=== PATIENT | female | born 1990 | race Caucasian/White ===

== ENCOUNTER → 2018-05-02 09:03 | Outpatient (CLI) | payer OTHER, SELFPAY ==
[2018-05-05 11:53] LABS: HPV Reflexed? NOT INDICATED
== END ==
PROVIDERS: Family Provider Family Medicine; PCP Family Medicine; Visit Provider Nurse Practitioner Women's Health
DX: Z12.4 Encounter for screening for malignant neoplasm of cervix (principal)
CPT/HCPCS: 88175; G0145

== ENCOUNTER → 2019-10-11 13:23 | Outpatient (CLI) | payer OTHER, SELFPAY ==
[2019-10-03 13:23] VITALS: BMI 48.1
--- NOTE | 2019-10-11 13:24 | US_ITS ---
STUDY: ULTRASOUND OF THE FEMALE PELVIS - COMPLETE REASON FOR EXAM: Female, 29 years old. IRREGULAR MENSES LMP: Unknown. TECHNIQUE: Transabdominal and Transvaginal TECHNICAL QUALITY: Adequate. COMPARISON: None. FINDINGS: The uterus is anteverted and is in a midline position. The uterus measures 8.4 x 4.2 x 4.0 cm. Normal uterine cervix. The endometrium measures 5 mm in thickness, and is hyperechoic. There is no demonstrated endometrial mass. There is no demonstrated myometrial mass. I.U.D. - The patient does have an I.U.D. IUD noted in satisfactory position The right ovary is visualized. The right ovary measures 2.8 x 1.5 x 1.5 cm. There is no right ovarian cyst or ovarian mass. There is no visualized right adnexal mass or complex lesion. There is normal arterial and normal venous vascularity. The left ovary is visualized. The left ovary measures 4.1 x 4.7 x 4.0 cm. There is a 3.8 x 4.5 x 3.4 cm simple cyst. There is normal arterial and normal venous vascularity. There is no fluid in the cul-de-sac. The bladder is sonographically normal US/Transvaginal Non- IMPRESSION: Simple left ovarian cyst, otherwise unremarkable study, no free fluid IUD noted in satisfactory position Electronically Signed: Sam Tyson MD at 10:22 EST , Service support ,
--- NOTE | 2019-10-11 13:24 | US_ITS ---
STUDY: ULTRASOUND OF THE FEMALE PELVIS - COMPLETE REASON FOR EXAM: Female, 29 years old. IRREGULAR MENSES LMP: Unknown. TECHNIQUE: Transabdominal and Transvaginal TECHNICAL QUALITY: Adequate. COMPARISON: None. FINDINGS: The uterus is anteverted and is in a midline position. The uterus measures 8.4 x 4.2 x 4.0 cm. Normal uterine cervix. The endometrium measures 5 mm in thickness, and is hyperechoic. There is no demonstrated endometrial mass. There is no demonstrated myometrial mass. I.U.D. - The patient does have an I.U.D. IUD noted in satisfactory position The right ovary is visualized. The right ovary measures 2.8 x 1.5 x 1.5 cm. There is no right ovarian cyst or ovarian mass. There is no visualized right adnexal mass or complex lesion. There is normal arterial and normal venous vascularity. The left ovary is visualized. The left ovary measures 4.1 x 4.7 x 4.0 cm. There is a 3.8 x 4.5 x 3.4 cm simple cyst. There is normal arterial and normal venous vascularity. There is no fluid in the cul-de-sac. The bladder is sonographically normal US/Pelvic (Non ) IMPRESSION: Simple left ovarian cyst, otherwise unremarkable study, no free fluid IUD noted in satisfactory position Electronically Signed: Sam Tyson MD at 10:22 EST , Service support ,
== END ==
PROVIDERS: PCP Family Medicine; Referring Provider Nurse Practitioner Women's Health; Visit Provider Nurse Practitioner Women's Health
DX: N92.6 Irregular menstruation, unspecified (principal)
CPT/HCPCS: 76830; 76856

== ENCOUNTER 2020-09-04 00:30 | Emergency (ER) | payer OTHER, SELFPAY ==
[2019-10-18 14:06] VITALS: BMI 47.9
[2020-09-04 00:31] VITALS: BP 148/111; PULSE 95; RESP 18; TEMP 37.4; O2SAT 100; BMI 49.7
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
[2020-09-04] MEDS: Orphenadrine 100 MG Tablet PO (01:25)
[2020-09-04] MEDS: Naproxen 500 MG Tablet PO (01:25)
[2020-09-04 01:28] VITALS: BP 122/66; PULSE 78; RESP 16; O2SAT 100
== END 2020-09-04 01:42 | disposition home or self-care (01) ==
PROVIDERS: Emergency Provider Student in an Organized Health Care Education/Training Program; PCP Family Medicine
DX: S06.0X0A Concussion without loss of consciousness, initial encounter (principal); S16.1XXA Strain of muscle, fascia and tendon at neck level, initial encounter; V89.2XXA Person injured in unspecified motor-vehicle accident, traffic, initial encounter; Y93.9 Activity, unspecified; Y92.9 Unspecified place or not applicable; F41.8 Other specified anxiety disorders; L30.9 Dermatitis, unspecified; Z79.899 Other long term (current) drug therapy
CPT/HCPCS: 70450; 71046; 72125; 99283

== ENCOUNTER → 2020-09-11 | Outpatient (CLI) | payer OTHER, SELFPAY ==
[2020-09-04 00:31] VITALS: BMI 49.7
== END | disposition home or self-care (01) ==
LOC: LABSPEC 14:58
PROVIDERS: PCP Family Medicine; Referring Provider Family Medicine; Visit Provider Nurse Practitioner Family
DX: U07.1 COVID-19 (principal); R43.2 Parageusia
CPT/HCPCS: 87633; 87635; U0005; U0003

== ENCOUNTER → 2020-10-06 | Outpatient (CLI) | payer OTHER, SELFPAY ==
[2020-10-06 12:56] VITALS: BMI 47.9
[2020-10-06 20:35] LABS: Chlamydia Trachomatis by PCR Negative (Negative); Neisserai gonorrhoeae by PCR Negative (Negative); Probe Check PASS; Sample Adequacy Control PASS; Specimen Processing Control PASS
== END | disposition home or self-care (01) ==
LOC: LABSPEC 16:01
PROVIDERS: PCP Family Medicine; Referring Provider Nurse Practitioner Women's Health; Visit Provider Nurse Practitioner Women's Health
DX: Z11.3 Encounter for screening for infections with a predominantly sexual mode of transmission (principal)
CPT/HCPCS: 87491; 87591

== ENCOUNTER → 2021-05-04 14:04 | Outpatient (CLI) | payer OTHER, SELFPAY ==
[2021-05-04 14:57] LABS: hCG Titer Quant., Serum 6668 mIU/mL (1-3)
== END ==
PROVIDERS: PCP Family Medicine; Referring Provider Obstetrics & Gynecology; Visit Provider Obstetrics & Gynecology
DX: O20.0 Threatened abortion (principal); Z3A.00 Weeks of gestation of pregnancy not specified
CPT/HCPCS: 36415; 84702; 86850; 86900; 86901

== ENCOUNTER → 2021-05-06 14:06 | Outpatient (CLI) | payer OTHER, SELFPAY ==
[2021-05-06 15:39] LABS: hCG Titer Quant., Serum 9997 mIU/mL (1-3)
== END ==
PROVIDERS: PCP Family Medicine; Referring Provider Obstetrics & Gynecology; Visit Provider Obstetrics & Gynecology
DX: O20.9 Hemorrhage in early pregnancy, unspecified (principal); Z3A.00 Weeks of gestation of pregnancy not specified
CPT/HCPCS: 36415; 84702

== ENCOUNTER 2021-05-29 02:53 | Emergency (ER) | payer OTHER, SELFPAY ==
[2021-05-29 02:56] VITALS: BP 133/71; PULSE 85; RESP 26; TEMP 36.9; O2SAT 99; BMI 50.5
--- NOTE | 2021-05-29 03:08 | US_ITS ---
EXAM: US , Transvaginal CLINICAL INDICATION: 31 years old, Female; bleeding TECHNIQUE: Real-time transvaginal obstetrical ultrasound of the maternal pelvis and a first trimester with image documentation. Transvaginal imaging was used for better evaluation of the fetus and adnexa. This report was created using [employer] report generation technology. COMPARISON: None. FINDINGS: Gestation: Single viable intrauterine with uxugq-ra-ghrz length (CRL) of 2.55 cm. Estimated gestational age is 9 weeks and 2 days. Cardiac activity is seen with a rate of 164 beats per minute. Placenta/amniotic fluid: Cannot be adequately evaluated due to the early gestational age. Uterus/cervix: 3.1 cm intramural fibroid in the posterior uterus. The cervix is closed. Ovaries: The right ovary is not seen. Free fluid: No free fluid. US/Transvaginal w/Preg US IMPRESSION: 1. Single viable intrauterine as described. 2. 3.1 cm intramural fibroid in the posterior uterus. ASSESSMENT: ABNORMAL report - There are abnormal findings in this report which may be related or unrelated to the reason for the exam. Electronically Signed: Sage Saez MD at 5:00 EDT Tel , Service support ,
--- NOTE | 2021-05-29 03:11 | EDS_ITS ---
HPI HPI - Female History of Present Illness Chief Complaint: Vag Bld, Preg Informant: patient Pain Pain: Positive for Pelvic Pain Onset: Today Bleeding Issue: Positive for Vaginal bleeding; Negative for Passing clots Onset: Today Current Severity: Similar to period Associated Symptoms P: 0 Ab: 0 Narrative Narrative: Patient presents due to concerns for miscarriage. Patient has approximately 8 to 9 weeks . This morning she got to the restroom and noted significant bright red bleeding. She has had some cramping. Patient was seen in her GYNs office on May 04 for some spotting. She did get RhoGam at that time. Patient states she is had rare spotting since then. Patient has not yet had any imaging to verify intrauterine . [facility] Medical History COVID-19 vaccine administered Depression with anxiety Eczema Mood swings Seasonal allergies Sleep apnea URI, acute Home Medications citalopram 40 mg tablet 40 mg PO DAILY #90 tab 10/20/20 [Rx Last Taken Unknown] albuterol sulfate 90 mcg/actuation aerosol inhaler 2 puff INHALATION Q4H PRN #18 g 03/11/21 [Rx Last Taken Unknown] fluticasone propionate 232 mcg/actuation breath activated pwdr inhal,sensor 1 inh INHALATION BID 05/13/21 [History Last Taken Unknown] multivitamin no.47-iron fum 27 mg-folate no.1 1 mg-dha 300 mg capsule 1 cap PO DAILY 05/13/21 [History Last Taken Unknown] Allergy/AdvReac Type Severity Reaction Status Date / Time Enviormental Allergy Mild Unknown Uncoded 05/29/21 02:54 Family History Father Diabetes Surgical History S/P tonsillectomy S/P wisdom tooth extraction [place] teeth removed Social History household members: family current occupation: [employer] Smoking Status: Never smoker alcohol intake: never substance use type: does not use caffeine: Yes what type of physical activity do you participate in: aerobics and weight training frequency: 3-4 times per week seatbelt use: always do you feel safe at home: Yes ROS ROS ED Constitutional Constitutional ED: Denies chills or fever(s) Eyes Eyes: Denies change in vision ENT ENT ED: Denies sore throat Cardiovascular Cardiovascular: Denies chest pain Respiratory/Chest Respiratory/Chest: Denies cough or dyspnea Gastrointestinal Gastrointestinal: Reports abdominal pain; Denies diarrhea, nausea or vomiting Genitourinary Genitourinary ED: Reports other Details: Vaginal bleeding ; Denies dysuria Musculoskeletal Musculoskeletal: Denies back pain Integumentary Denies rash Neurologic Neurologic: Denies headache(s) or weakness Psychiatric Psychiatric: Reports anxiety; Denies depression Allergic/Immunologic Allergic/Immunologic ED: Denies urticaria EXAM Physical Exam Const Vital Signs: 05/29/21 02:56 Temperature 98.4 F Temperature Source Oral Pulse Rate 85 Respiratory Rate 26 H Blood Pressure 133/71 H Blood Pressure Mean 91 Pulse Ox 99 Oxygen Delivery Method Room Air Positive well nourished and well developed General Appearance ED: well developed HEENT Reports normocephalic and head/scalp atraumatic Eyes PERRL and EOMs intact bilaterally Neck supple Chest Wall inspection of chest normal and palpation of chest normal Resp normal respiratory effort and clear to auscultation bilaterally Cardio regular rate and regular rhythm GI normal to inspection, nondistended, normoactive bowel sounds Palpation: soft Extremity normal to inspection Neuro oriented x3 and no sensory deficits noted Sensorium / Orientation: alert Motor Exam: strength 5/5 throughout Psych Mood & Affect: tearful Skin no rashes or lesions noted MDM MDM MDM Narrative Medical decision making narrative: See and quant obtained. Because patient had not yet had ultrasound performed to verify intrauterine this was ordered. Patient was given Ativan to help with anxiety. Lab Data Attestation: I reviewed the patient's lab results. Labs: Laboratory Results - last 24 hr 05/29/21 05/29/21 03:17 03:17 WBC 8.2 RBC 4.05 L Hgb 11.5 L Hct 35.8 L MCV 88.4 MCH 28.4 MCHC 32.1 RDW Std Deviation 42.9 RDW Coeff of Rivas 13.2 Plt Count 175 MPV 10.1 Immature Gran % (Auto) 0.700 Neut % (Auto) 66.0 Lymph % (Auto) 25.5 [place] % (Auto) 5.6 Eos % (Auto) 1.8 Baso % (Auto) 0.4 Absolute Neuts (auto) 5.4 Absolute Lymphs (auto) 2.09 Nucleated RBC % 0 HCG, Quant [id number] H Radiography Diagnostic Testing: Radiology Impression Obstetrics Ultrasound 05/29/21 03:08 IMPRESSION: 1. Single viable intrauterine as described. 2. 3.1 cm intramural fibroid in the posterior uterus. ASSESSMENT: ABNORMAL report - There are abnormal findings in this report which may be related or unrelated to the reason for the exam. Electronically Signed: Sage Saez MD at 5:00 EDT Tel , Service support , Treatment and Re-Evaluation Comments:: On repeat evaluation patient resting comfortably. She states that her bleeding has significantly diminished and now only is passing blood-tinged mucus. Test results discussed with patient and mother at bedside. At this time she will monitor her symptoms. I did discuss case with Dr. Huerta, on-call for her [employer] office. Patient has a follow-up with scheduled Tuesday and is to keep this appointment. If her bleeding worsens she is to call the office. Discharge Plan Triage Chief Complaint: Vag Bld, Preg ED Provider: Isamar Haney Dx/Rx/DC Orders Clinical Impression: Miscarriage, threatened, early Instructions: ED Possible Miscarriage ... Prescriptions: No Action albuterol sulfate [Ventolin HFA] 90 mcg/actuation HFA aerosol inhaler 2 puff inhalation Q4H PRN (Reason: shortness of breath or wheezing) Qty: 18 RF: 6 ArmonAir Digihaler 232 mcg/actuation aero powdr breath act w/sensor 1 inh inhalation BID RF: 0 PNV-DHA 27 mg iron-1 mg -300 mg capsule 1 cap PO DAILY RF: 0 citalopram 40 mg tablet 40 mg PO DAILY Qty: 90 RF: 3 Primary Care Provider: Александр Coleman Referrals: Kaylee Huerta MD [STAFF PHYSICIAN] - Keep Tami appointment Александр Coleman MD [Primary Care Provider] - Disposition Disposition: Home, Self Care
[2021-05-29 03:26] LABS: Absolute Lymphocyte Count 2.09 X10^3/uL (0.83-4.51); Absolute Neutrophil Count 5.4 X10^3/uL (2.0-7.7); Basophil# 0.03 X10^3/uL; Basophil% 0.4 % (0-1); Eosinophil# 0.15 X10^3/uL; Eosinophils% 1.8 % (0-5); Hematocrit 35.8 % (37-47); Hemoglobin 11.5 g/dL (12.0-15.0); Lymphocyte # 2.09 X10^3/ul (0.83-4.51); Lymphocyte % 25.5 % (19-41); Mean Corp Hgb Conc 32.1 g/dL (32-36); Mean Corpuscular Hgb 28.4 pg (27.0-32.0); Mean Corpuscular Volume 88.4 fL (81-99); Mean Platelet Vol. 10.1 fl (6.2-12.0); Monocyte# 0.46 X10^3/uL; Monocyte% 5.6 % (0-10); NRBC Flagged by Analyzer 0 % (0-5); Neutrophil # 5.42 X10^3/uL (2.7-7.7); Platelet Count 175 K/mm3 (150-450); RBC Distribution Width CV 13.2 % (11.6-14.6); RBC Distribution Width SD 42.9 fl (35.1-43.9); Red Blood Count 4.05 M/mm3 (4.2-5.4); White Blood Count 8.2 K/mm3 (4.4-11.0)
[2021-05-29] MEDS: LORazepam 2 MG/ML Syringe 1 MG IV (04:13)
[2021-05-29 04:42] LABS: hCG Titer Quant., Serum 52300 mIU/mL (1-3)
[2021-05-29 05:27] VITALS: PULSE 76; RESP 18; O2SAT 97
== END 2021-05-29 05:27 | disposition home or self-care (01) ==
PROVIDERS: Emergency Provider Emergency Medicine; PCP Family Medicine
DX: O20.0 Threatened abortion (principal); Z3A.09 9 weeks gestation of pregnancy
CPT/HCPCS: 76817; 84702; 85025; 96374; 99283; A4216

== ENCOUNTER → 2021-06-01 | Outpatient (CLI) | payer OTHER, SELFPAY ==
[2021-06-01 12:40] LABS: Amphetamine Urine VISTA NEGATIVE (<1000 ng/mL); Barbiturate Urine VISTA NEGATIVE (< 200 ng/mL); Benzodiazepine Urine VISTA NEGATIVE (< 200 ng/mL); Cocaine Urine VISTA NEGATIVE (< 300 ng/mL); Ecstacy Urine VISTA NEGATIVE (< 500 ng/mL); Methadone Urine VISTA NEGATIVE (< 300 ng/mL); PCP Urine VISTA NEGATIVE (< 25 ng/mL); THC Urine VISTA NEGATIVE (< 50 ng/mL); Vista UDS pH Range 5
[2021-06-03 04:07] LABS: Chlamydia By Nucleic Acid AMP Negative (Negative)
[2021-06-03 09:30] LABS: Gonococcus By Nucleic Acid AMP Negative (Negative)
[2021-06-04 18:04] LABS: HPV APTIMA, High Risk Positive (Negative)
== END | disposition home or self-care (01) ==
LOC: LABSPEC 11:49
PROVIDERS: PCP Family Medicine; Referring Provider Obstetrics & Gynecology; Visit Provider Obstetrics & Gynecology
DX: Z34.90 Encounter for supervision of normal pregnancy, unspecified, unspecified trimester (principal); Z12.4 Encounter for screening for malignant neoplasm of cervix
CPT/HCPCS: 80307; 87086; 87088; 87491; 87591; 87624; 88175; G0145

== ENCOUNTER → 2021-06-12 09:48 | Outpatient (CLI) | payer OTHER, SELFPAY ==
[2021-06-12 11:07] LABS: Absolute Lymphocyte Count 1.91 X10^3/uL (0.83-4.51); Absolute Neutrophil Count 5.5 X10^3/uL (2.0-7.7); Basophil# 0.02 X10^3/uL; Basophil% 0.2 % (0-1); Eosinophil# 0.15 X10^3/uL; Eosinophils% 1.9 % (0-5); Hemoglobin 11.6 g/dL (12.0-15.0); Lymphocyte # 1.91 X10^3/ul (0.83-4.51); Lymphocyte % 23.8 % (19-41); Mean Corp Hgb Conc 33.1 g/dL (32-36); Mean Corpuscular Hgb 28.9 pg (27.0-32.0); Mean Corpuscular Volume 87.3 fL (81-99); Mean Platelet Vol. 9.9 fl (6.2-12.0); Monocyte# 0.37 X10^3/uL; Monocyte% 4.6 % (0-10); NRBC Flagged by Analyzer 0 % (0-5); Neutrophil # 5.54 X10^3/uL (2.7-7.7); Platelet Count 156 K/mm3 (150-450); RBC Distribution Width CV 13.4 % (11.6-14.6); RBC Distribution Width SD 42.7 fl (35.1-43.9); Red Blood Count 4.01 M/mm3 (4.2-5.4)
[2021-06-12 11:21] LABS: Glucose Challenge Gest 1H 50g 178 mg/dL (70-140)
[2021-06-12 12:04] LABS: HIV - WCH Non-Reactive (Nonreactive); Hepatitis B Surface Antigen Non-Reactive (Nonreactive); Hepatitis C Antibody Non-Reactive (Nonreactive); Rubella IgG Reactive (Nonreactive); Syphilis Antibodies Non-reactive
== END ==
LOC: LAB 09:49 → PAVLAB 11:40
PROVIDERS: PCP Family Medicine; Referring Provider Obstetrics & Gynecology; Visit Provider Obstetrics & Gynecology
DX: O36.0190 Maternal care for anti-D [Rh] antibodies, unspecified trimester, not applicable or unspecified (principal); Z3A.00 Weeks of gestation of pregnancy not specified
CPT/HCPCS: 36415; 82950; 85025; 86703; 86762; 86780; 86803; 86850; 86870; 86900; 86901; 87340

== ENCOUNTER → 2021-07-01 11:50 | Outpatient (CLI) | payer OTHER, SELFPAY ==
[2021-07-01 12:23] LABS: Hemoglobin A1c 5.7 % (3.8-5.6)
[2021-07-02 10:14] LABS: Kleihauer-Betke Negative
== END ==
PROVIDERS: PCP Family Medicine; Referring Provider Obstetrics & Gynecology; Visit Provider Obstetrics & Gynecology
DX: E66.01 Morbid (severe) obesity due to excess calories (principal); Z68.42 Body mass index [BMI] 45.0-49.9, adult
CPT/HCPCS: 36415; 83036; 84443; 85460

== ENCOUNTER 2021-07-14 13:30 | Outpatient (RCR) | payer OTHER, SELFPAY | END 2021-08-04 23:59 | LOC: DC 13:30 | PROVIDERS: PCP Family Medicine; Visit Provider Obstetrics & Gynecology | DX: O24.419 Gestational diabetes mellitus in pregnancy, unspecified control (principal); Z3A.00 Weeks of gestation of pregnancy not specified | CPT/HCPCS: 97802 ==

== ENCOUNTER 2021-10-15 13:46 | Outpatient (CLI) | payer OTHER, SELFPAY ==
[2021-10-15 14:11] LABS: Absolute Lymphocyte Count 1.96 X10^3/uL (0.83-4.51); Absolute Neutrophil Count 5.7 X10^3/uL (2.0-7.7); Basophil# 0.02 X10^3/uL; Basophil% 0.2 % (0-1); Eosinophil# 0.16 X10^3/uL; Eosinophils% 1.9 % (0-5); Hematocrit 32.7 % (37-47); Hemoglobin 10.7 g/dL (12.0-15.0); Lymphocyte # 1.96 X10^3/ul (0.83-4.51); Mean Corp Hgb Conc 32.7 g/dL (32-36); Mean Corpuscular Hgb 29.3 pg (27.0-32.0); Mean Corpuscular Volume 89.6 fL (81-99); Mean Platelet Vol. 9.7 fl (6.2-12.0); Monocyte# 0.55 X10^3/uL; Monocyte% 6.5 % (0-10); NRBC Flagged by Analyzer 0 % (0-5); Neutrophil # 5.68 X10^3/uL (2.7-7.7); Neutrophil % 66.8 % (47-70); Platelet Count 125 K/mm3 (150-450); RBC Distribution Width CV 13.7 % (11.6-14.6); RBC Distribution Width SD 44.9 fl (35.1-43.9); Red Blood Count 3.65 M/mm3 (4.2-5.4); White Blood Count 8.5 K/mm3 (4.4-11.0)
== END 2021-10-15 23:59 | disposition home or self-care (01) ==
LOC: PAVLAB 13:47
PROVIDERS: PCP Family Medicine; Referring Provider Obstetrics & Gynecology; Visit Provider Obstetrics & Gynecology
DX: O26.892 Other specified pregnancy related conditions, second trimester (principal); Z67.91 Unspecified blood type, Rh negative
CPT/HCPCS: 36415; 85025; 86850; 86900; 86901

== ENCOUNTER 2021-11-03 12:17 | Outpatient (CLI) | payer OTHER, SELFPAY ==
--- NOTE | 2021-11-03 12:20 | US_ITS ---
STUDY: SECOND AND THIRD TRIMESTER OBSTETRICAL ULTRASOUND REASON FOR EXAM: Female, 31 years old growth LMP: 03/27/2021. TECHNIQUE: Transabdominal TECHNICAL QUALITY: Adequate. PRIOR ULTRASOUND: Comparison is made with prior study 05/29/2021. FINDINGS: There is a single intrauterine fetus. The fetus is in a cephalic presentation. There is demonstrated cardiac activity with a heart rate of 150 bpm. There is a normal amniotic fluid volume. The largest amniotic fluid pocket measures 5.2 cm. The amniotic fluid index (MARY) is 18.3 cm. The placenta is anterior in location and is not low lying. There are Grade 1 placental changes. The cervix measures 4.9 cm in length. The adnexal regions are not visualized. BIOMETRY: BPD: 8.52 cm: 34 weeks, 2 days HC: 31.16 cm: 34 weeks, 6 days AC: 30.9 cm: 34 weeks, 5 days FL: 6.14 cm: 31 weeks, 5 days CI: 80% FL/BPD: 72% FL/HC: FL/AC: 20% HC/AC: 1.01 age by current US: 33 weeks, 5 days. LUIS by current US: 12/17/2021. Estimated weight: 2327 grams, +/- 349 grams, 97 %. age by prior US: 31 weeks, 5 days. LUIS by prior US: 12/31/2021. Age by LMP: 31 weeks, 4 days. LUIS by LMP: 01/01/2022. US/OB Limited With Biometrics IMPRESSION: Single live intrauterine gestation with a mean gestational age of 31 weeks and 5 days. The measurements obtained today places the fetus in the 97th percentile. Electronically Signed: Vitaly Patricio MD at 12:27 EST ,
[2021-11-03 13:53] LABS: T4 Free Direct 0.82 ng/dL (0.76-1.46); Thyroid Stim Hormone (TSH) 1.58 uIU/mL (0.358-3.74)
== END 2021-11-03 23:59 | disposition home or self-care (01) ==
PROVIDERS: Internal Medicine Endocrinology, Diabetes & Metabolism; PCP Family Medicine; Referring Provider Obstetrics & Gynecology; Visit Provider Obstetrics & Gynecology
DX: O24.410 Gestational diabetes mellitus in pregnancy, diet controlled (principal); Z3A.00 Weeks of gestation of pregnancy not specified; O99.282 Endocrine, nutritional and metabolic diseases complicating pregnancy, second trimester; E03.9 Hypothyroidism, unspecified
CPT/HCPCS: 36415; 76816; 84439; 84443

== ENCOUNTER 2021-12-01 12:28 | Outpatient (CLI) | payer OTHER, SELFPAY ==
--- NOTE | 2021-12-01 12:30 | US_ITS ---
STUDY: SECOND AND THIRD TRIMESTER OBSTETRICAL ULTRASOUND REASON FOR EXAM: Female, 31 years old growth -- well being LMP: 03/27/2021. TECHNIQUE: Transabdominal TECHNICAL QUALITY: Adequate. PRIOR ULTRASOUND: Comparison is made with prior study of 11/03/2021. FINDINGS: There is a single intrauterine fetus. The fetus is in a cephalic presentation. There is demonstrated cardiac activity with a heart rate of 138 bpm. There is a normal amniotic fluid volume. The largest amniotic fluid pocket measures 8.1 cm. The amniotic fluid index (MARY) is 17.3 cm. The placenta is anterior in location and is not low lying. There are Grade 2 placental changes. The cervix was not measured due to the head position. The adnexal regions are not visualized. BIOMETRY: BPD: 9.3 cm: 37 weeks, 5 days HC: 34.15 cm: 39 weeks, 2 days AC: 33.77 cm: 37 weeks, 4 days FL: 7.04 cm: 36 weeks, 0 days CI: 79% FL/BPD: 76% FL/HC: FL/AC: 21% HC/AC: 1.01 age by current US: 37 weeks, 4 days. LUIS by current US: 12/18/2021. Estimated weight: 3211 grams, +/- 482 grams, 91 %. age by prior US: 37 weeks, 5 days. LUIS by prior US: 12/17/2021. Age by LMP: 35 weeks, 4 days. LUIS by LMP: 01/01/2022. IMPRESSION: Single live uterine gestation with images age of 37 weeks and 5 days. The measurements obtained today fail within the normal expected range. Electronically Signed: Vitaly Patricio MD at 13:55 EDT , STUDY: OBSTETRICAL ULTRASOUND - BIOPHYSICAL PROFILE REASON FOR EXAM: Female, 31 years old growth -- well being LMP: 03/27/2021. PRIOR ULTRASOUND: None. TECHNIQUE: Transabdominal TECHNICAL QUALITY: Adequate. FINDINGS: There is a single intrauterine fetus. The fetus is in a cephalic presentation. There is demonstrated cardiac activity with a heart rate of 138 bpm. There is a normal amniotic fluid volume. The largest amniotic fluid pocket measures 8.1 cm cm. The amniotic fluid index (MARY) is 17.3 cm. The placenta is anterior in location and is not low lying. There are Grade 2 placental changes. BIOPHYSICAL PROFILE: Breathing Movements (FBM): 0 Gross Body Movements (GBM): 2 Tone (FT): 2 Amniotic Fluid Volume (AFV): 2 TOTAL SCORE: US/OB Limited With Biometrics IMPRESSION: biophysical profile of 02/10. Electronically Signed: Vitaly Patricio MD at 13:57 EDT ,
[2021-12-01 13:39] VITALS: BP 136/62; PULSE 83
[2021-12-01 13:42] VITALS: BP 136/62; PULSE 83; TEMP 37; O2SAT 98
[2021-12-01 13:47] VITALS: BMI 49.9
--- NOTE | 2021-12-01 19:06 | OB.TRI.HP_ITS ---
HPI - General HPI Narrative SUMIT ZUÑIGA, is a 31 F who presents to labor and delivery for an NST due to bpp today of 02/10. Maternal Data Information LUIS Calculator Estimated Delivery Date Method Current WG Current Estimate 01/01/22 LMP (Certain) 36w 0d PFSH PFSH Medical History COVID-19 vaccine administered Depression with anxiety Eczema Hypothyroidism affecting Mood swings Seasonal allergies Sleep apnea URI, acute Home Medications multivitamin no.47-iron fum 27 mg-folate no.1 1 mg-dha 300 mg capsule 1 cap PO DAILY 05/13/21 [History Last Taken 12/01/21 10:00] fexofenadine 180 mg tablet 180 mg PO DAILY 06/01/21 [History Last Taken 12/01/21 10:00] blood-glucose meter #1 ea 06/12/21 [Rx Last Taken Unknown] blood sugar diagnostic #50 ea 07/01/21 [Rx Last Taken Unknown] lancets 33 gauge #100 ea 07/01/21 [Rx Last Taken Unknown] OneTouch Verio test strips #400 ea NS 07/03/21 [Rx Last Taken Unknown] levothyroxine 125 mcg tablet 125 mcg PO DAILY #90 tab 07/03/21 [Rx Last Taken 12/01/21 07:00] pen needle, diabetic 32 gauge x 5/32 #50 ea 07/10/21 [Rx Last Taken Unknown] citalopram 40 mg tablet 40 mg PO DAILY #90 tab 08/18/21 [Rx Last Taken 12/01/21 10:00] albuterol sulfate 90 mcg/actuation aerosol inhaler 2 puff INHALATION Q4H PRN #18 g 09/24/21 [Rx Last Taken 12/01/21 10:00] ferrous sulfate 325 mg (65 mg iron) tablet 325 mg PO DAILY 10/30/21 [History Last Taken 12/01/21 10:00] insulin NPH isoph U-100 human 100 unit/mL (3 mL) subcutaneous pen 18 unit SUBCUT QPM ml 10/30/21 [History Last Taken 11/30/21 22:00] promethazine 12.5 mg tablet 12.5 mg PO Q6H PRN #90 tab 10/30/21 [Rx Last Taken 11/30/21 22:00] fluticasone furoate 200 mcg-vilanterol 25 mcg/dose inhalation powder 1 inh INHALATION QDAY #60 ea 11/10/21 [Rx Last Taken Unknown] Allergy/AdvReac Type Severity Reaction Status Date / Time Enviormental Allergy Mild Unknown Uncoded 12/04/21 13:21 Family History Father Diabetes Surgical History S/P tonsillectomy S/P wisdom tooth extraction [place] teeth removed Social History household members: family current occupation: [employer] Smoking Status: Never smoker alcohol intake: never substance use type: does not use caffeine: Yes what type of physical activity do you participate in: aerobics and weight training frequency: 3-4 times per week seatbelt use: always do you feel safe at home: Yes History 1 Elective abortions Hx Para Spontaneous abortions Hx # Term Pregnancies Ectopic pregnancies Hx # Pregnancies Multiple births # of living children Visit Details Expected Delivery Route/Plan Labor Preferences- CB/BF classes: [] labor support person: [] labor intervention preferences: [] pain management options preferred: [] cut cord/dad catch: [] : [] PP control planned: [] discussed possible routes of delivery and associated risks: [] special requests: [] Plans Covid status: immunized moderna 12/24, getting booster Flu vaccine: given Tdap vaccine: given Rhogam:given LARC form signed: [] movement and labor precautions reviewed. Problem list reviewed and updated with the most current plan of care details and appropriate orders placed. Relevant counseling for the gestational age provided. Continue routine care and follow up unless otherwise noted in visit notes/problem list details OB Flowsheet Initial Weight: 279 lb Date -?-?-?-?-?-?--?-?-?-?-?-?- EGA Weight BP Urine Prot -?-?-?-?-?-?-?-?-?-?-?-?- Glucose FHR FuHt Pres Dilation -?-?-?-?-?-?-?-?-?-?-?-?- Effaced St Visit Note 06/01/21 -?-?-?-?-?-?-?-?-?-?-?-?- 9w 3d 279 lb (+0 oz) 122/70 -?-?-?-?-?-?-?-?-?-?-?-?- 170 -?-?-?-?-?-?-?-?-?-?-?-?- SM- CRL cons wit h LMP 06/19/21 -?-?-?-?-?-?-?-?-?-?-?-?- 12w 0d 275 lb 8 oz (-3 lb 8 oz) 138/78 Negative -?-?-?-?-?-?-?-?-?-?-?-?- Negative 158 -?-?-?-?-?-?-?-?-?-?-?-?- GP - work in for bleeding. Live IUP on US with no evidence of CAL. On exam, no active bleeding. Reassurance provided. 07/01/21 -?-?-?-?-?-?-?-?-?-?-?-?- 13w 5d 274 lb (-5 lb) 112/80 -?-?-?-?-?-?-?-?-?-?-?-?- 150 -?-?-?-?-?-?-?-?-?-?-?-?- SM- some brown d ischarge. no cramping kb test ordered 07/27/21 -?-?-?-?-?-?-?-?-?-?-?-?- 17w 3d 272 lb 2 oz (-6 lb 14 oz) 118/62 -?-?-?-?-?-?-?-?-?-?-?-?- 148 -?-?-?-?-?-?-?-?-?-?-?-?- -No VB, LOF. S till needs colp scheduled. MFM anatomy US ordered. Glucose readings doing well now that on insulin at HS/ Dr Munoz 09/24/21 -?-?-?-?-?-?-?-?-?-?-?-?- 25w 6d 272 lb (-7 lb) 110/70 Negative -?-?-?-?-?-?-?-?-?-?-?-?- Negative 130 -?-?-?-?-?-?-?-?-?-?-?-?- JV- here for col p. no complaints or concerns. see colpo notes. 10/15/21 -?-?-?-?-?-?-?-?-?-?-?-?- 28w 6d 273 lb 8 oz (-5 lb 8 oz) 104/68 Negative -?-?-?-?-?-?-?-?-?-?-?-?- Negative 135 36 -?-?-?-?-?-?-?-?-?-?-?-?- JV- no lof, vagi nal bleeding, or dec fm. rhogam today. 10/30/21 -?-?-?-?-?-?-?-?-?-?-?-?- 31w 0d 276 lb (-3 lb) 118/76 Negative -?-?-?-?-?-?-?-?-?-?-?-?- Negative 140 37 -?-?-?-?-?-?-?-?-?-?-?-?- Sm- no vb lof go od fm no regular ctx . discussed testing and US. BS management 11/10/21 -?-?-?-?-?-?-?-?-?-?-?-?- 32w 4d 275 lb (-4 lb) 118/60 Negative -?--?-?-?-?-?-?-?-?-?-?-?- Negative 150 -?-?-?-?-?-?-?-?-?-?-?-?- SM- no vb lof go od fm no rgular ctx 11/13/21 -?-?-?-?-?-?-?-?-?-?-?-?- 33w 0d 276 lb 8 oz (-2 lb 8 oz) 148/82 Negative -?-?-?-?-?-?-?-?-?-?-?-?- Negative 150 -?-?-?-?-?-?-?-?-?-?-?-?- JV- nst reactive . bp elevated today likely due to steroid injection. will rpt on tuesday. no visual changes or epigastric pain. no proteinuria. 11/17/21 -?-?-?-?-?-?-?-?-?-?-?-?- 33w 4d 279 lb (+0 oz) 128/84 -?-?-?-?-?-?-?-?-?-?-?-?- 140 -?-?-?-?-?-?-?-?-?-?-?-?- MH-NST only and reactive 11/20/21 -?-?-?-?-?-?-?-?-?-?-?-?- 34w 0d 274 lb 6 oz (-4 lb 10 oz) 108/68 -?-?-?-?-?-?-?-?-?-?-?-?- 120 -?-?-?-?-?-?-?-?-?-?-?-?- JV- no lof, vagi nal bleeding, or dec fm. growth scan next week. reactive NST 11/24/21 -?-?-?-?-?-?-?-?-?-?-?-?- 34w 4d 273 lb 4 oz (-5 lb 12 oz) 124/72 Negative -?-?-?-?-?-?-?-?-?-?-?-?- Negative 130 -?-?-?-?-?-?-?-?-?-?-?-?- -NST only reac tive 12/01/21 -?-?-?-?-?-?-?-?-?-?-?-?- 35w 4d 282 lb 3.067 oz (+3 lb 3.067 oz) 136/62 136/62 -?-?-?-?-?-?-?-?-?-?-?-?- -?-?-?-?-?-?-?-?-?-?-?-?- 12/04/21 -?-?-?-?-?-?-?-?-?-?-?-?- 36w 0d 287 lb 8 oz (+8 lb 8 oz) 125/78 Negative -?-?-?-?-?-?-?-?-?-?-?-?- Negative 130 -?-?-?-?-?-?-?-?-?-?-?-?- Sm- no vb lof go od fm no regular ctx reactive nst ROS Constitutional Constitutional: Reports systems reviewed and no addt'l complaints, except as documented Gastrointestinal Gastrointestinal: Denies bloating, constipation, cramping, diarrhea, nausea or vomiting Genitourinary Genitourinary: Reports other Details: Denies vaginal odor, vaginal bleeding, or vaginal discharge ; Denies difficulty urinating or flank pain Physical Exam HEENT normocephalic Resp normal respiratory effort and normal air movement no CVA tenderness Extremity normal to inspection General Extremity: edema bilateral (trace ) NST FHR Rate Baby A Baseline: 140 Variability:: Moderate Accelerations:: 15 x 15 Decelerations:: None NST Reactive:: Yes FHR Category:: Category I Assessment & Plan (1) Macrosomia of fetus affecting management of mother: COMMENT: 97th percentile (2) Thrombocytopenia affecting : COMMENT: CBC in 4 weeks (3) Anemia affecting : COMMENT: Iron started-CBC in 4 weeks (4) Hypothyroidism affecting : QUALIFIERS: Trimester: second trimester Qualified Code(s): O99.282 - Endocrine, nutritional and metabolic diseases complicating , second trimester; E03.9 - Hypothyroidism, unspecified COMMENT: TSH Q trimester (5) Gestational diabetes: QUALIFIERS: Gestational diabetes mellitus control: diet-controlled Trimester: second trimester Qualified Code(s): O24.410 - Gestational diabetes mellitus in , diet controlled COMMENT: HS insulin, Dr Munoz, plan 2x weekly nsts and growth us at 32,36, deliver at 39. (6) Low grade squamous intraepithelial lesion (LGSIL): COMMENT: colpo done. no need for biopsies based on procedure findings. will rpt pap in may 2022 (7) Supervision of high risk , antepartum: COMMENT: PRR LUIS: 01/01/22 FOB not involved (8) : QUALIFIERS: Weeks of gestation: 36 weeks Qualified Code(s): Z3A.36 - 36 weeks gestation of COMMENT: declines carrier and ntd screen. NIPT low risk. nl anatomy. PLAN: NST reassuring. sending patient to home with kick counts and close follow up. Charges/Coding Multi Select Codes Visit Charges Office Visit/Consults: 74259 OV L3 Est Urinary/Genital Urinary/Genital CPT Codes: 80319-47 non-stress test Interp
== END 2021-12-01 23:59 | disposition home or self-care (01) ==
LOC: OPUS 12:29 → WP 13:32
PROVIDERS: PCP Family Medicine; Referring Provider Obstetrics & Gynecology; Visit Provider Obstetrics & Gynecology
DX: O24.410 Gestational diabetes mellitus in pregnancy, diet controlled (principal); D69.6 Thrombocytopenia, unspecified; O99.283 Endocrine, nutritional and metabolic diseases complicating pregnancy, third trimester; Z3A.37 37 weeks gestation of pregnancy; O09.10 Supervision of pregnancy with history of ectopic pregnancy, unspecified trimester; E03.9 Hypothyroidism, unspecified; O99.343 Other mental disorders complicating pregnancy, third trimester; Z3A.36 36 weeks gestation of pregnancy; Z79.899 Other long term (current) drug therapy; F41.8 Other specified anxiety disorders; O99.113 Other diseases of the blood and blood-forming organs and certain disorders involving the immune mechanism complicating pregnancy, third trimester
CPT/HCPCS: 59025; 59050; 76816; 76819; 99218; G0378

== ENCOUNTER 2021-12-11 17:05 | Outpatient (CLI) | payer OTHER, SELFPAY | END 2021-12-11 23:59 | disposition home or self-care (01) | LOC: LABSPEC 17:06 | PROVIDERS: PCP Family Medicine; Visit Provider Obstetrics & Gynecology | DX: O09.90 Supervision of high risk pregnancy, unspecified, unspecified trimester (principal) | CPT/HCPCS: 87081 ==

== ENCOUNTER 2021-12-22 10:45 | Outpatient (CLI) | payer OTHER, SELFPAY ==
[2021-12-22] VITALS (30 sets, daily range): BP systolic 130–172; BP diastolic 65–97; PULSE 76–93; RESP 16–18; TEMP 36.9; O2SAT 97–99; BMI 50.3
[2021-12-22] MEDS: Lactated Ringers 1,000 ML 150 ML IV (11:15)
[2021-12-22 11:49] LABS: Hemoglobin 11.4 g/dL (12.0-15.0); Mean Corp Hgb Conc 34.5 g/dL (32-36); Mean Corpuscular Hgb 29.6 pg (27.0-32.0); Mean Corpuscular Volume 85.7 fL (81-99); Mean Platelet Vol. 10.4 fl (6.2-12.0); POSITIVE COUNT YES; Platelet Count 71 K/mm3 (150-450); RBC Distribution Width CV 13.8 % (11.6-14.6); RBC Distribution Width SD 42.8 fl (35.1-43.9); Red Blood Count 3.85 M/mm3 (4.2-5.4); White Blood Count 10.2 K/mm3 (4.4-11.0)
[2021-12-22 12:28] LABS: AST(SGOT) 93 U/L (15-37); Alanine Aminotransfer ALT/SGPT 123 U/L (13-56); Creatinine, Serum 0.53 mg/dL (0.55-1.02); EST Glomerular Filtration Rate 144 mL/min (>60); Est Glom Filt Rate - Afr Amer 175 mL/min (>60); Estimated Creatinine Clearance 128.39 ml/min; LDH 350 U/L (84-246); Uric Acid 4.5 mg/dL (2.6-6.0)
[2021-12-22 12:35] LABS: Scan Indicated on CBC? Y/N YES- FLAGS NOTED
[2021-12-22 12:51] LABS: Differential Comment SCANNED
[2021-12-22] MEDS: Magnesium Sulfate 4gm/100mL 4 GM/100 ML IV.SOLN. IV (12:52)
[2021-12-22 12:59] LABS: Protein, Urine (Random) 66.8 mg/dL (<11.9); Protein:Creat Ratio 247 mg/g CRE (0-200)
[2021-12-22] MEDS: Acetaminophen 500 MG Tablet 1000 MG PO (13:05)
[2021-12-22] MEDS: Magnesium Sulfate 4gm/100mL 2 GM/50 ML IV.SOLN. IV (13:14)
[2021-12-22] MEDS: Magnesium Sulfate 20 GM/500 ML BAG IV (13:24)
--- NOTE | 2021-12-22 17:41 | OB.TRI.HP_ITS ---
HPI - General HPI Narrative SUMIT ZUÑIGA, is a 31 y/o @ 38 weeks 4 days who presents to L&D for complaint of headaches and feeling uncomfortable all night. She had blood pressurs in the office earlier of 150's/90's. She denies blurry vision, visual changes of any kind, right upper quadrant pain nausea or vomiting. She denies decreased movement vaginal bleeding or loss of fluid. Maternal Data Information LUIS Calculator Estimated Delivery Date Method Current WG Current Estimate 01/01/22 LMP (Certain) 38w 5d PFSH PFS Medical History COVID-19 vaccine administered Depression with anxiety Eczema Hypothyroidism affecting Mood swings Seasonal allergies Sleep apnea URI, acute Home Medications multivitamin no.47-iron fum 27 mg-folate no.1 1 mg-dha 300 mg capsule 1 cap PO DAILY 05/13/21 [History Last Taken 12/22/21] fexofenadine 180 mg tablet 180 mg PO DAILY 06/01/21 [History Last Taken 12/01/21 10:00] blood-glucose meter #1 ea 06/12/21 [Rx Last Taken Unknown] blood sugar diagnostic #50 ea 07/01/21 [Rx Last Taken Unknown] lancets 33 gauge #100 ea 07/01/21 [Rx Last Taken Unknown] OneTouch Verio test strips #400 ea NS 07/03/21 [Rx Last Taken Unknown] levothyroxine 125 mcg tablet 125 mcg PO DAILY #90 tab 07/03/21 [Rx Last Taken 12/01/21 07:00] pen needle, diabetic 32 gauge x 5/32 #50 ea 07/10/21 [Rx Last Taken Unknown] citalopram 40 mg tablet 40 mg PO DAILY #90 tab 08/18/21 [Rx Last Taken 12/01/21 10:00] albuterol sulfate 90 mcg/actuation aerosol inhaler 2 puff INHALATION Q4H PRN #18 g 09/24/21 [Rx Last Taken 12/01/21 10:00] ferrous sulfate 325 mg (65 mg iron) tablet 325 mg PO DAILY 10/30/21 [History Last Taken 12/21/21 1] insulin NPH isoph U-100 human 100 unit/mL (3 mL) subcutaneous pen 18 unit SUBCUT QPM ml 10/30/21 [History Last Taken 11/30/21 22:00] promethazine 12.5 mg tablet 12.5 mg PO Q6H PRN #90 tab 10/30/21 [Rx Last Taken 11/30/21 22:00] fluticasone furoate 200 mcg-vilanterol 25 mcg/dose inhalation powder 1 inh INHALATION QDAY #60 ea 11/10/21 [Rx Last Taken Unknown] Allergy/AdvReac Type Severity Reaction Status Date / Time Enviormental Allergy Mild Unknown Uncoded 12/18/21 12:45 Family History Father Diabetes Surgical History S/P tonsillectomy S/P wisdom tooth extraction [place] teeth removed Social History household members: family current occupation: [employer] Smoking Status: Never smoker alcohol intake: never substance use type: does not use caffeine: Yes what type of physical activity do you participate in: aerobics and weight training frequency: 3-4 times per week seatbelt use: always do you feel safe at home: Yes History 1 Elective abortions Hx Para Spontaneous abortions Hx # Term Pregnancies Ectopic pregnancies Hx # Pregnancies Multiple births # of living children Visit Details Expected Delivery Route/Plan Labor Preferences- CB/BF classes: [] labor support person: [] labor intervention preferences: [] pain management options preferred: [] cut cord/dad catch: [] : [] PP control planned: [] discussed possible routes of delivery and associated risks: [] special requests: [] Plans Covid status: immunized moderna 12/24, getting booster Flu vaccine: given Tdap vaccine: given Rhogam:given LARC form signed: [] movement and labor precautions reviewed. Problem list reviewed and updated with the most current plan of care details and appropriate orders placed. Relevant counseling for the gestational age provided. Continue routine care and follow up unless otherwise noted in visit notes/problem list details OB Flowsheet Initial Weight: 279 lb Date -?-?-?-?-?-?-?-?-?-?-?-?- EGA Weight BP Urine Prot -?-?-?-?-?-?-?-?-?-?-?-?- Glucose FHR FuHt Pres Dilation -?-?-?-?-?-?-?-?-?-?-?-?- Effaced St Visit Note 06/01/21 -?-?-?-?-?-?-?-?-?-?-?-?- 9w 3d 279 lb (+0 oz) 122/70 -?-?-?-?-?-?-?-?-?-?-?-?- 170 -?-?-?-?-?-?-?-?-?-?-?-?- SM- CRL cons wit h LMP 06/19/21 -?-?-?-?-?-?-?-?-?-?-?-?- 12w 0d 275 lb 8 oz (-3 lb 8 oz) 138/78 Negative -?-?-?-?-?-?-?-?-?-?-?-?- Negative 158 -?-?--?-?-?-?-?-?-?-?-?-?- GP - work in for bleeding. Live IUP on US with no evidence of CAL. On exam, no active bleeding. Reassurance provided. 07/01/21 -?-?-?-?-?-?-?-?-?-?-?-?- 13w 5d 274 lb (-5 lb) 112/80 -?-?-?-?-?-?-?-?-?-?-?-?- 150 -?-?-?-?-?-?-?-?-?-?-?-?- SM- some brown d ischarge. no cramping kb test ordered 07/27/21 -?-?-?-?-?-?-?-?-?-?-?-?- 17w 3d 272 lb 2 oz (-6 lb 14 oz) 118/62 -?-?-?-?-?-?-?-?-?-?-?-?- 148 -?-?-?-?-?-?-?-?-?-?-?-?- MH-No VB, LOF. S till needs colp scheduled. MFM anatomy US ordered. Glucose readings doing well now that on insulin at HS/ Dr Munoz 09/24/21 -?-?-?-?-?-?-?-?-?-?-?-?- 25w 6d 272 lb (-7 lb) 110/70 Negative -?-?-?-?-?-?-?-?-?-?-?-?- Negative 130 -?-?-?-?-?-?-?-?-?--?-?-?- JV- here for col p. no complaints or concerns. see colpo notes. 10/15/21 -?-?-?-?-?-?-?-?-?-?-?-?- 28w 6d 273 lb 8 oz (-5 lb 8 oz) 104/68 Negative -?-?-?-?-?-?-?-?-?-?-?-?- Negative 135 36 -?-?-?-?-?-?-?-?-?-?-?-?- JV- no lof, vagi nal bleeding, or dec fm. rhogam today. 10/30/21 -?-?-?-?-?-?-?-?-?-?-?-?- 31w 0d 276 lb (-3 lb) 118/76 Negative -?-?-?-?-?-?-?-?-?-?-?-?- Negative 140 37 -?-?-?-?-?-?-?-?-?-?-?-?- Sm- no vb lof go od fm no regular ctx . discussed testing and US. BS management 11/10/21 -?-?-?-?-?-?-?-?-?-?-?-?- 32w 4d 275 lb (-4 lb) 118/60 Negative -?-?-?-?-?-?-?-?-?-?-?-?- Negative 150 -?-?-?-?-?-?-?-?-?-?-?-?- SM- no vb lof go od fm no rgular ctx 11/13/21 -?-?-?-?-?-?-?-?-?-?-?-?- 33w 0d 276 lb 8 oz (-2 lb 8 oz) 148/82 Negative -?-?-?-?-?-?-?-?-?-?-?-?- Negative 150 -?-?-?-?-?-?-?-?-?-?-?-?- JV- nst reactive . bp elevated today likely due to steroid injection. will rpt on tuesday. no visual changes or epigastric pain. no proteinuria. 11/17/21 -?-?-?-?-?-?-?-?-?-?-?-?- 33w 4d 279 lb (+0 oz) 128/84 -?-?-?-?-?-?-?-?-?-?-?-?- 140 -?-?-?-?-?-?-?-?-?-?-?-?- -NST only and reactive 11/20/21 -?-?-?-?-?-?-?-?-?-?-?-?- 34w 0d 274 lb 6 oz (-4 lb 10 oz) 108/68 -?-?-?-?-?-?-?-?-?-?-?-?- 120 -?-?-?-?-?-?-?-?-?-?-?-?- JV- no lof, vagi nal bleeding, or dec fm. growth scan next week. reactive NST 11/24/21 -?-?-?-?-?-?-?-?-?-?-?-?- 34w 4d 273 lb 4 oz (-5 lb 12 oz) 124/72 Negative -?-?-?-?-?-?-?-?-?-?-?-?- Negative 130 -?-?-?-?-?-?-?-?-?-?-?-?- MH-NST only reac tive 12/01/21 -?-?-?-?-?-?-?-?-?-?-?-?- 35w 4d 282 lb 3.067 oz (+3 lb 3.067 oz) 136/62 136/62 -?-?-?-?-?-?-?-?-?-?-?-?- -?-?-?-?-?-?-?-?-?-?-?-?- 12/04/21 -?-?-?-?-?-?-?-?-?-?-?-?- 36w 0d 287 lb 8 oz (+8 lb 8 oz) 125/78 Negative -?-?-?-?-?-?-?-?-?-?-?-?- Negative 130 -?-?-?-?-?-?-?-?-?-?-?-?- Sm- no vb lof go od fm no regular ctx reactive nst 12/08/21 -?-?-?-?-?-?-?-?-?-?-?-?- 36w 4d 287 lb 4 oz (+8 lb 4 oz) 120/78 Negative -?-?-?-?-?-?-?-?-?-?-?-?- Negative 140 -?-?-?-?-?-?-?-?-?-?-?-?- MH-NST only reac tive 12/11/21 -?-?-?-?-?-?-?-?-?-?-?-?- 37w 0d 292 lb 2 oz (+13 lb 2 oz) 138/88 Negative -?-?-?-?-?-?-?-?-?-?-?-?- Negative 140 44 Cephalic 0 -?-?-?-?-?-?-?-?-?-?-?-?- 0 -4 JV- NST re active. gbs collected. consider another growth scan prior to IOL due to maternal obesity and 91st%. will decide next visit. 12/18/21 -?-?-?-?-?-?-?-?-?-?-?-?- 38w 0d 287 lb 6 oz (+8 lb 6 oz) 130/86 Negative -?-?-?-?-?-?-?-?-?-?-?-?- Negative 1 -?-?-?-?-?-?-?-?-?-?-?-?- 0 -4 SM- co ctx this morning no vb lof good fm. nst today 12/22/21 -?-?-?-?-?-?-?-?-?-?-?-?- 38w 4d 286 lb (+7 lb) 157/94 Trace -?-?-?-?-?-?-?-?-?-?-?-?- Negative -?-?-?-?-?-?-?-?-?-?-?-?- JV-pt was being set up for NST but described headache and bp was found to be high on 2 separate measurements. sending to L&D for nst and to have PIH labs collected. 12/22/21 -?-?-?-?-?-?-?-?-?-?-?-?- 38w 4d 284 lb 2 oz (+5 lb 2 oz) 147/74 136/83 153/83 150/78 143/79 172/89 146/71 138/65 151/79 143/82 140/74 136/97 169/86 145/70 147/69 151/74 130/71 130/71 144/75 144/75 -?-?-?-?-?-?-?-?-?-?-?-?- -?-?-?-?-?-?-?-?-?-?-?-?- ROS Constitutional Constitutional: Reports systems reviewed and no addt'l complaints, except as documented Gastrointestinal Gastrointestinal: Denies bloating, constipation, cramping, diarrhea, nausea or vomiting Genitourinary Genitourinary: Reports other Details: Denies vaginal odor, vaginal bleeding, or vaginal discharge ; Denies difficulty urinating or flank pain Physical Exam HEENT normocephalic Resp normal respiratory effort and normal air movement GI normal to inspection, nondistended, normoactive bowel sounds Rectal Exam: other Other Details: Obese and gravid no CVA tenderness Extremity normal to inspection General Extremity: edema bilateral (trace ) NST FHR Rate Baby A Baseline: 140 Variability:: Moderate Accelerations:: 15 x 15 Decelerations:: None NST Reactive:: Yes FHR Category:: Category I Assessment & Plan (1) HELLP syndrome (HELLP), third trimester: (2) Macrosomia of fetus affecting management of mother: COMMENT: 97th percentile (3) Thrombocytopenia affecting : COMMENT: CBC in 4 weeks (4) Anemia affecting : COMMENT: Iron started-CBC in 4 weeks (5) Hypothyroidism affecting : QUALIFIERS: Trimester: second trimester Qualified Code(s): O99.282 - Endocrine, nutritional and metabolic diseases complicating , second trimester; E03.9 - Hypothyroidism, unspecified COMMENT: TSH Q trimester (6) Gestational diabetes: QUALIFIERS: Gestational diabetes mellitus control: diet-controlled Trimester: second trimester Qualified Code(s): O24.410 - Gestational diabetes mellitus in , diet controlled COMMENT: HS insulin, Dr Munoz, plan 2x weekly nsts and growth us at 32,36, deliver at 39. (7) Low grade squamous intraepithelial lesion (LGSIL): COMMENT: colpo done. no need for biopsies based on procedure findings. will rpt pap in may 2022 (8) Supervision of high risk , antepartum: COMMENT: PRR LUIS: 01/01/22 FOB not involved, GBS negative (9) : QUALIFIERS: Weeks of gestation: 38 weeks Qualified Code(s): Z3A.38 - 38 weeks gestation of COMMENT: declines carrier and ntd screen. NIPT low risk. nl anatomy. (10) Rh negative status during : QUALIFIERS: Trimester: second trimester Qualified Code(s): O26.892 - Other specified related conditions, second trimester; Z67.91 - Unspecified blood type, Rh negative COMMENT: O neg rhogam given 05/04/21, 10/15/21 (11) Asthma: QUALIFIERS: Asthma severity: mild Asthma persistence: intermittent Asthma complication type: uncomplicated Qualified Code(s): J45.20 - Mild intermittent asthma, uncomplicated COMMENT: Advair with albuterol prn (12) Sleep apnea: QUALIFIERS: Sleep apnea type: obstructive Qualified Code(s): G47.33 - Obstructive sleep apnea (adult) (pediatric) COMMENT: CPAP 9 cm of water with residual AHI of 0.2. Working on compli ance (13) Obesity: QUALIFIERS: Obesity type: due to excess calories Obesity classification: adult class 3 (BMI >= 40) Serious obesity comorbidity presence: with serious comorbidity Body mass index: BMI 45.0-49.9 Qualified Code(s): E 66.01 - Morbid (severe) obesity due to excess calories; Z68.42 - Body mass index [BMI] 45.0-49.9, adult COMMENT: GDM (14) Depression with anxiety: COMMENT: Currently on Celexa; 07/27 stable PLAN: Lab analysis shows elevated liver enzymes and low platelets. Although she was gestational thrombocytopenia during the , in combination with the elevated blood pressures and elevated liver enzymes we now suspect that she is an HELLP syndrome. I have called maternal- medicine in [place] and they concur. Currently our hospital does not have any platelets on storage and will take several hours to receive just 1 unit the patient is requiring Rh- platelets. At this time I recommend transportation to [facility] under the care of Drs. Mathias and Dr. Linda Grant. Plan is to start 6 g bolus of magnesium sulfate followed by 2 g/h and serial blood pressures until the ambulance picks her up Charges/Coding Multi Select Codes Visit Charges Office Visit/Consults: 80066 OV L3 Est Urinary/Genital Urinary/Genital CPT Codes: 42653-86 non-stress test Interp
--- NOTE | 2021-12-29 12:44 | NURSING ---
added end time to IV for charging purposes. The IV's(LR and magnesium sulfate) were infusing upon transfer.
== END 2021-12-22 15:25 | disposition short-term general hospital (02) ==
LOC: WPOUT 10:51 → WP 12:49
PROVIDERS: PCP Family Medicine; Referring Provider Obstetrics & Gynecology; Visit Provider Obstetrics & Gynecology
DX: O14.23 HELLP syndrome (HELLP), third trimester (principal); E66.01 Morbid (severe) obesity due to excess calories; D69.6 Thrombocytopenia, unspecified; O99.513 Diseases of the respiratory system complicating pregnancy, third trimester; Z3A.38 38 weeks gestation of pregnancy; G47.33 Obstructive sleep apnea (adult) (pediatric); F41.8 Other specified anxiety disorders; O99.283 Endocrine, nutritional and metabolic diseases complicating pregnancy, third trimester; Z86.16 Personal history of COVID-19; J45.20 Mild intermittent asthma, uncomplicated; E03.9 Hypothyroidism, unspecified; O99.343 Other mental disorders complicating pregnancy, third trimester; O99.353 Diseases of the nervous system complicating pregnancy, third trimester; E66.09 Other obesity due to excess calories; O99.213 Obesity complicating pregnancy, third trimester; Z67.91 Unspecified blood type, Rh negative; Z79.899 Other long term (current) drug therapy; O24.414 Gestational diabetes mellitus in pregnancy, insulin controlled
CPT/HCPCS: 96361 ×2; 96365; 96366; 96375; 36415; 59025; 59050; 82565; 82570; 83615; 84156; 84450; 84460; 84550; 85027; 87426; 94760; 99218; J7120; G0378

== ENCOUNTER 2022-02-15 18:04 | Emergency (ER) | payer OTHER, SELFPAY ==
[2022-02-15 18:05] VITALS: BP 118/80; PULSE 66; RESP 18; TEMP 36.1; O2SAT 98; BMI 45.3
[2022-02-15 18:54] LABS: Absolute Lymphocyte Count 1.72 X10^3/uL (0.83-4.51); Absolute Neutrophil Count 4.6 X10^3/uL (2.0-7.7); Basophil# 0.04 X10^3/uL; Basophil% 0.6 % (0-1); Eosinophil# 0.27 X10^3/uL; Eosinophils% 3.8 % (0-5); Hematocrit 35.3 % (37-47); Hemoglobin 11.5 g/dL (12.0-15.0); Lymphocyte # 1.72 X10^3/ul (0.83-4.51); Lymphocyte % 24.5 % (19-41); Mean Corp Hgb Conc 32.6 g/dL (32-36); Mean Corpuscular Hgb 28.5 pg (27.0-32.0); Mean Corpuscular Volume 87.4 fL (81-99); Monocyte# 0.37 X10^3/uL; Monocyte% 5.3 % (0-10); NRBC Flagged by Analyzer 0 % (0-5); Neutrophil # 4.57 X10^3/uL (2.7-7.7); Neutrophil % 65.1 % (47-70); Platelet Count 153 K/mm3 (150-450); RBC Distribution Width CV 12.7 % (11.6-14.6); RBC Distribution Width SD 40.9 fl (35.1-43.9); Red Blood Count 4.04 M/mm3 (4.2-5.4)
--- NOTE | 2022-02-15 19:06 | EDS_ITS ---
HPI HPI - Female History of Present Illness Chief Complaint: Vag Bleeding Informant: patient Pain Pain: Negative for Pelvic Pain, Vulvar Pain and Vaginal Pain Bleeding Issue: Positive for Vaginal bleeding (Noted last evening) and Passing clots (Blood clot the size of her palm today prior to arrival); Negative for Passing tissue Onset: Today and Yesterday Context: Sudden Onset Timing: Intermittent Current Severity: - (Mild bleeding last evening clot today. No active bleeding presently) Associated Symptoms P: 1 Ab: 0 Narrative Narrative: Patient is a 31-year-old G1, P1 who had emergent performed at [facility] because of help syndrome. She required multiple transfusions and multiple doses of RhoGAM. She presents because she had mild vaginal bleeding last evening. She passed a large clot today. She does not believe she is actively at this time. She does have Rh- blood. 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 She denies orthostatic symptoms. She denies pelvic or vaginal pain. Prior similar symptoms: No Recent Illness/Hospitalization: Yes PFSH [facility] Medical History COVID-19 vaccine administered Depression with anxiety Eczema Hypothyroidism affecting Mood swings Seasonal allergies Sleep apnea URI, acute Home Medications fexofenadine 180 mg tablet 180 mg PO DAILY 06/01/21 [History Last Taken 12/01/21 10:00] citalopram 40 mg tablet 40 mg PO DAILY #90 tab 08/18/21 [Rx Last Taken 12/01/21 10:00] levothyroxine 125 mcg tablet 125 mcg PO DAILY #90 tab 12/24/21 [Rx Last Taken Unknown] Allergy/AdvReac Type Severity Reaction Status Date / Time Enviormental Allergy Mild Unknown Uncoded 02/15/22 18:05 Family History Father Diabetes Surgical History S/P S/P tonsillectomy S/P wisdom tooth extraction [place] teeth removed Social History household members: family current occupation: [employer] Smoking Status: Never smoker alcohol intake: never substance use type: does not use caffeine: Yes what type of physical activity do you participate in: aerobics and weight training frequency: 3-4 times per week seatbelt use: always do you feel safe at home: Yes ROS ROS ED Constitutional Constitutional ED: Denies chills, fever(s), subjective or sweats Eyes Eyes: Denies blurry vision, change in vision or diplopia ENT ENT ED: Denies ear pain, rhinorrhea or sore throat Cardiovascular Cardiovascular: Denies chest pain, palpitations or racing heartbeat Respiratory/Chest Respiratory/Chest: Denies cough, dyspnea or dyspnea on exertion Gastrointestinal Gastrointestinal: Denies abdominal pain, diarrhea, nausea or vomiting Genitourinary Genitourinary ED: Denies dysuria, hematuria or urinary frequency Musculoskeletal Musculoskeletal: Denies arthralgias or myalgias Integumentary Denies rash Neurologic Neurologic: Denies headache(s), paresthesias or weakness Endocrine Endocrinology: Denies polydipsia, polyphagia or polyuria Hematologic/Lymphatic Hematologic/Lymphatic: Reports anemia; Denies easy bleeding or easy bruising EXAM Physical Exam Const Vital Signs: 02/15/22 18:05 Temperature 97.0 F L Temperature Source Temporal Pulse Rate 66 Respiratory Rate 18 Blood Pressure 118/80 Blood Pressure Mean 92 Pulse Ox 98 Oxygen Delivery Method Room Air Positive well nourished, well developed and obese General Appearance ED: well developed, NAD and pallor Nutritional Appearance: obese HEENT Reports TM's clear and moist mucous membranes Negative for trauma or tenderness Tympanic Membrane ED: Yes TM's clear Eyes PERRL and EOMs intact bilaterally General Eye ED: Yes pale conjunctiva; Negative for scleral icterus Neck no lymphadenopathy, supple and no JVD Chest Wall inspection of chest normal and palpation of chest normal Resp normal respiratory effort and clear to auscultation bilaterally Effort and Inspection: pain with movement Cardio regular rate, regular rhythm, S1 normal heart sound, no murmurs and no JVD GI normal to inspection, nondistended, normoactive bowel sounds, soft to palpation and non-tender no CVA tenderness, external exam normal, appearance of the vagina normal, appearance of the cervix normal, bimanual exam normal, adnexae non-tender and no adnexal masses Narrative: Is approximately 3 to 5 cc of old blood in the vaginal vault. External Female Exam: normal appearance of the urethra Extremity normal to inspection and full ROM General Extremety ED: Negative for edema or tenderness General Extremity: Negative for edema Neuro oriented x3 Sensorium / Orientation: alert Psych mental status grossly normal Skin no rashes or lesions noted and no wounds General Skin Exam: pallor; Negative for jaundice MDM MDM MDM Narrative Medical decision making narrative: We will obtain a CBC to assess H&H and platelet count since she had history of help with thrombocytopenia. Pelvic exam will to be performed and will contact COST ESTIMATING MANAGER after pelvic exam Case discussed with Dr. Carlotta Knutson on-call for the group. She was informed of patient's presentation, laboratory results and pelvic exam results. Plan is to discharge to home Lab Data Labs: Laboratory Results - last 24 hr 02/15/22 18:45 WBC 7.0 RBC 4.04 L Hgb 11.5 L Hct 35.3 L MCV 87.4 MCH 28.5 MCHC 32.6 RDW Std Deviation 40.9 RDW Coeff of Rivas 12.7 Plt Count 153 MPV 10.0 Immature Gran % (Auto) 0.700 Neut % (Auto) 65.1 Lymph % (Auto) 24.5 [place] % (Auto) 5.3 Eos % (Auto) 3.8 Baso % (Auto) 0.6 Absolute Neuts (auto) 4.6 Absolute Lymphs (auto) 1.72 Nucleated RBC % 0 Discharge Plan Triage Chief Complaint: Vag Bleeding ED Provider: Mj Thomas Dx/Rx/DC Orders Clinical Impression: hemorrhage of vagina Instructions: Hemorrhage Prescriptions: No Action fexofenadine [Darlene Allergy] 180 mg tablet 180 mg PO DAILY RF: 0 citalopram 40 mg tablet 40 mg PO DAILY Qty: 90 RF: 3 levothyroxine 125 mcg tablet 125 mcg PO DAILY Qty: 90 RF: 1 Primary Care Provider: Александр Coleman Referrals: Isamar De Guzman DO [STAFF PHYSICIAN] - As Needed Александр Coleman MD [Primary Care Provider] - Disposition Disposition: Home, Self Care
[2022-02-15 21:23] VITALS: PULSE 87; RESP 18; O2SAT 97
== END 2022-02-15 21:24 | disposition home or self-care (01) ==
PROVIDERS: Emergency Provider Emergency Medicine; PCP Family Medicine; Visit Provider Emergency Medicine
DX: O72.2 Delayed and secondary postpartum hemorrhage (principal); Z68.42 Body mass index [BMI] 45.0-49.9, adult; Z79.899 Other long term (current) drug therapy; O99.215 Obesity complicating the puerperium; O99.285 Endocrine, nutritional and metabolic diseases complicating the puerperium; E03.9 Hypothyroidism, unspecified; O99.345 Other mental disorders complicating the puerperium; F41.8 Other specified anxiety disorders
CPT/HCPCS: 85025; 99283

== ENCOUNTER → 2022-11-11 | Outpatient (CLI) | payer OTHER, SELFPAY ==
[2022-11-11 16:01] LABS: T4 Free Direct 0.87 ng/dL (0.76-1.46)
== END | disposition home or self-care (01) ==
LOC: PAVLAB 14:35
PROVIDERS: PCP Family Medicine; Referring Provider Internal Medicine Endocrinology, Diabetes & Metabolism; Visit Provider Internal Medicine Endocrinology, Diabetes & Metabolism
DX: E03.9 Hypothyroidism, unspecified (principal)
CPT/HCPCS: 36415; 84439; 84443

== ENCOUNTER 2023-05-06 07:15 | Day surgery (SDC) | payer OTHER, SELFPAY ==
[2023-05-06] VITALS (8 sets, daily range): BP systolic 113–140; BP diastolic 56–104; PULSE 82–108; RESP 16–20; TEMP 36.4–36.8; O2SAT 93–100; BMI 51.2
--- NOTE | 2023-05-06 07:21 | PCM.HP.BLA ---
History and Physical Intake Vital Signs 03/30/2314:18 04/25/2309:16 04/25/2309:17 Height 5 ft 3 in 5 ft 3 in 5 ft 3 in Weight: 281 lb 8 oz 286 lb 6 oz BMI 49.8 50.7 BP 116/77 120/80 Intake Visit Reasons: BS [employer] Required: No Is patient in pain?: No Allergies Environmental Allergies: Uncoded Allergy (Verified 04/25/23 09:17) NEEDS FOLLOW-UP Medications fexofenadine 180 mg tablet (Darlene Allergy) 180 mg PO DAILY 06/01/21 [History Confirmed 04/25/23] citalopram 40 mg tablet 40 mg PO DAILY #90 tabs 09/13/22 [Rx Confirmed 04/25/23] levothyroxine 125 mcg tablet 125 mcg PO DAILY #90 tabs 11/11/22 [Rx Confirmed 04/25/23] Post menopausal: No Patient : No : No PFSH Medical History Anemia affecting COVID-19 vaccine administered Depression with anxiety Eczema Gestational diabetes HELLP syndrome (HELLP), third trimester Hypothyroidism (acquired) Macrosomia of fetus affecting management of mother Mood swings Prediabetes Rh negative status during Seasonal allergies Sleep apnea Thrombocytopenia affecting URI, acute Surgical History S/P S/P tonsillectomy S/P wisdom tooth extraction [place] teeth removed Family History Father Diabetes Social History household members: family current occupation: [employer] Smoking Status: Never smoker alcohol intake: never substance use type: does not use caffeine: Yes what type of physical activity do you participate in: aerobics and weight training frequency: 3-4 times per week seatbelt use: always do you feel safe at home: Yes HPI BS Details: SUMIT ZUÑIGA is a 32 year old who presents for preop visit plans laparosocpic bilateral salpingectomy. Female Reproductive History Menopausal Symptoms: No night sweats History 1 Elective abortions Hx Para 1 Spontaneous abortions Hx # Term Pregnancies Ectopic pregnancies Hx # Pregnancies Multiple births # of living children 1 Past Pregnancies Del. Date Name GA/Weeks Outcome Route Bth Weight Gen [facility] F[facility] 12/22/21 Kathy Perez 38 live - full term 7lbs 5oz Female 0 spinal [employer] Delivery Date: 12/22/21 Last Updated by: Bren Martinez HELLP syndrome, received multiple doses of RH pos. platelets ROS Const Constitutional: Denies fatigue, night sweats, weight gain or weight loss ENT ENT: Reports system reviewed and no additional complaints, except as documented Cardio Card: Denies chest pain Resp Resp: Denies cough or dyspnea GI GI: Reports as per HPI; Denies abdominal pain, constipation, nausea or vomiting : Denies nipple discharge, urinary frequency, urinary incontinence, urinary hesitancy, urinary urgency, vaginal discharge, vaginal dryness, vaginal odor or vaginal pruritus Musc Musc: Denies arthralgias, back pain or muscle weakness Skin Skin/Breast: Denies alopecia, change in hair, dry skin, breast mass, breast pain, breast skin changes or nipple discharge Neuro Neuro: Reports system reviewed and no additional complaints, except as documented Psych Psych: Reports system reviewed and no additional complaints, except as documented Endo Endo: Denies cold intolerance, excessive sweating, heat intolerance or polydipsia Ian/Lymph Hematologic/Lymphatic: Denies easy bleeding, Denies easy bruising and Denies lymphadenopathy Exam Const General: cooperative, healthy appearing, comfortable and no acute distress Orientation: alert [facility] Head: normal to inspection and normocephalic Ears: hearing grossly normal bilaterally and external ears normal Nose: external nose normal and nares normal Face and sinus: normal facial exam Neck Neck: normal visual inspection and no lymphadenopathy Thyroid: thyroid normal Chest Chest palpation & inspection: normal inspection of the chest Resp Effort & Inspection: normal respiratory effort Auscultation: clear to auscultation bilaterally Cardio Rate: regular rate Rhythm: regular rhythm Heart Sounds: S1 normal and S2 normal GI Inspection: normal to inspection and non-distended Palpation: soft and no hepatosplenomegaly Musc Other: gross motor intact no deficits, full bilateral strength Skin General: no rashes or lesions noted Neuro General: patient alert, patient awake, moves all extremities and no focal motor deficits Motor: muscle tone normal throughout Extrem General: normal to inspection and no pedal edema Psych Appearance: grossly normal Mental Status: mental status grossly normal Affect: normal affect Speech and Movement: speech and movement normal Coding Level of Care Code No Charge Diagnoses Contraceptive management Z30.9 Assessment and Plan Assessment and Plan (1) Contraceptive management: Status: Acute Comment: laparoscopic bilateral salpingectomy Plan After discussing the patient's diagnosis and treatment plan options, patient wishes to proceed with surgical management. I have discussed with the patient the risks, benefits, and alternatives of the procedure which include but are not limited to risks of anesthesia, bleeding, infection, possible damage to bowel, bladder, or surrounding vasculature which could lead to additional surgery to evaluate any complications. Patient agrees to procedure and wishes to proceed. ACOG/uptodate references given for additional information regarding procedure. UPDATE- I have seen the patient and performed any clinically relevant updates to the history and physical exam. Carlotta Knutson MD
--- NOTE | 2023-05-06 07:34 | DCINST_ITS ---
Discharge Instructions Diet Discharge Diet: No restrictions Activity Discharge Activity: Return to Normal Activity, May Not Drive (for 2 weeks or while taking narcotic pain meds.), May Shower and May Take a Tub Bath (in 7 days) May resume sexual activity in: 1 week Weight Bearing Status: Full weight bearing Dressing / Incision Call your doctor if your incision/area has: Continuous Slow Oozing, Sudden Increased Bleeding, Increased Pain/ Swelling, Increased Redness and Foul Smelling Discharge Call your doctor if you observe: Fever of 101 or Higher, Using more than 1 pad per hour, Shortness of breath, Chest pain and Uncontrolled pain Suture Line Care: Avoid Pulling/Pushing and Avoid Pinching/Bending Remove Dressing in: 1 week (if present) Cleanse incision/area with: Soap & Water and Keep Dressing Clean & Dry Follow Up Care When: Call to make an appointment with your doctor for a fu/incision check in 1- 2 weeks. Test Results: Test results from this visit will be discussed in further detail at your follow- up appointment, if applicable. Discharge Plan Admission Attending Provider: Carlotta Knutson Primary Care Provider: Александр Coleman Discharge Orders/Prescriptions Prescriptions: New oxycodone-acetaminophen [Percocet] 5-325 mg tablet 1 tab PO Q6H PRN (Reason: pain) 7 Days Qty: 10 0RF naproxen [naproxen] 500 mg tablet 500 mg PO BID PRN PRN (Reason: Pain) Qty: 30 1RF nystatin [Nystop] 100,000 unit/gram powder 1 applic topical TID Qty: 60 1RF Rx Instructions: apply under abdomen where redness is at previous csection scar Continued cetirizine [Allergy Relief (cetirizine)] 10 mg tablet 10 mg PO DAILY PRN (Reason: allergy symptoms) albuterol sulfate 90 mcg/actuation HFA aerosol inhaler 1 - 2 inh inhalation Q6H PRN (Reason: shortness of breath or wheezing) citalopram 40 mg tablet 40 mg PO DAILY Qty: 90 3RF levothyroxine 125 mcg tablet 125 mcg PO DAILY Qty: 90 3RF Referrals / Follow Up: Александр Coleman MD [Primary Care Provider] - Disposition Disposition (needs filled in before D/C Order can be placed): Home, Self Care
--- NOTE | 2023-05-06 07:34 | PCM.OPRPT ---
Problems Associated Problem List Diagnoses (1) Contraceptive management: Report of Operation Date of Procedure: 05/06/23 Pre-Operative Diagnosis: see problem list Post-Operative Diagnosis: same Surgery/Procedure Performed:: laparoscopic bilateral salpingectomy Description of Surgical Findings:: nl uterus tubes ovaries difficult abdominal entry due to body habitus bmi 52. omental to anterior abdominal wall adhesions Surgeon: Carlotta Knutson Type of Anesthesia: General and Local Specimen's removed: tubes Drains: none Estimated Blood Loss (mL): 50 Fluids Replaced: crystalloid Description of Procedure: Patient was taken in the operating room and was placed under general anesthesia was prepped and draped in normal sterile fashion in the dorsal lithotomy position. Bladder was drained of clear urine and SCDs were on preoperatively. Uterus was sounded and a uterine manipulator was placed after dilating. Attention was then paid to the abdominal portion of the procedure and the umbilicus was elevated with towel clamps and injected with Marcaine and after a 5 mm incision was made and the Veress needle was entered into the abdomen but unable to be confirmed to be intraabdominal due to the enlarged body habitus. then a 5 mm optical trocar was attempted to be placed under direct visualization and larger instrumentation was used but still correct placement could not be confirmed. at this time the decision to enter directly with a philippe technique was utilized dissecting down to the fascia, stay sutures placed after making a fascial umbilical incision and insufflating the abdomen with co2 gas. a philippe trocar was finally able to be placed and the abdomen insufflated. below the entry area was inspected and no injuries were noted. A 5 mm port was placed in the left lower quadrant under direct visualization. omental to anterior abdominal wall adhesions were taken down with the ligasure device. Uterus was well visualized and bilateral fallopian tubes identified and bilateral tubes were elevated and transecting across the mesosalpinx and the attachment to the uterine corpus bilaterally the tubes were removed without complication. Excellent hemostasis was noted. Fallopian tubes were removed through the lower port site without complication. Liver and upper abdomen were visualized notably within normal limits and no other gross abnormalities were seen in the abdomen. All instruments removed from the abdomen after gas was desufflated. umbilical fascial incision closed with 0 vicryl and copiously irrigated with betadine. Port sites were closed with 3-0 Monocryl Steri's and op sites were applied. All instruments removed from the vagina and patient was awoken and taken recovery in stable condition. Grafts/Implants Used: none Complications none Admit VTE Documentation VTE Present on Admission: No VTE Mechan Device Prophylaxis: SCD's Multi Select Codes Urinary/Genital Urinary/Genital CPT Codes: 95802 Laproscopic BS/O
[2023-05-06] MEDS: Lactated Ringers 1,000 ML 15 ML IV ×2 (07:44→11:26)
[2023-05-06 07:47] LABS: Hematocrit 35.1 % (37-47); Hemoglobin 11.4 g/dL (12.0-15.0); Mean Corp Hgb Conc 32.5 g/dL (32-36); Mean Corpuscular Hgb 28.5 pg (27.0-32.0); Mean Corpuscular Volume 87.8 fL (81-99); Platelet Count 166 K/mm3 (150-450); RBC Distribution Width CV 13.7 % (11.6-14.6); RBC Distribution Width SD 43.9 fl (35.1-43.9); White Blood Count 8.8 K/mm3 (4.4-11.0)
[2023-05-06 07:51] LABS: Internal QC Validated? YES +Cl - CLEAR BKGD; Pregnancy, Urine Negative Negative
--- NOTE | 2023-05-06 08:30 | FALS_PTH ---
PATIENT: SUMIT ZUÑIGA LOC: [facility] [place] U#:[id number] AGE/SX: 32/F ROOM: RE05/06/[address]: Dr. Carlotta Knutson MD : 1990 BED: DIS: 05/06/2023 SPEC #: [id number] RECD: 05/06/23 11:03 STATUS: JOSUE HURTADO #: [id number] MARINE: 05/06/23 08:[address]: Carlotta Knutson DEPT: SURGICAL PATHOLOGY RECD BY: Dori Samano ENTERED: 05/06/23 11:47 SP TYPE: FALL TUBES OTHR DR: Dr. Александр Coleman MD Tissues: Fallopian tube Procedures: Surgery Specimen Level II HEADER OPERATION: Laparoscopic bilateral salpingectomy PRE-OP DIAGNOSIS: Contraceptive management TISSUE SUBMITTED: Bilateral fallopian tubes MICROSCOPIC DIAGNOSIS Right and left fallopian tubes, bilateral salpingectomies: Complete segments of fallopian tubes with no pathologic change. AM:luis alberto 05/10/2023 MICROSCOPIC DESCRIPTION Slides are reviewed. GROSS DESCRIPTION Received in fixative is one container labeled with the patient's name and designated bilateral fallopian tubes. The specimen consists of bilateral fallopian tubes including fimbrial ends measuring 6.0 cm in length and 0.5 cm in diameter and 7.5 cm in length and 0.5 cm in diameter. The fallopian tubes are not identified as right or left. Sections reveal unremarkable cut surfaces. Account Development Specialist sections are submitted in two cassettes with each cassette containing one fallopian tube. / YULY:luis alberto 05/06/2023 TC:4 CPT: 10748 x2
[2023-05-06] MEDS: Bupivacaine 0.25% 30 ML Vial (09:22)
== END 2023-05-06 12:55 | disposition home or self-care (01) ==
LOC: SDC 07:17 → AC 07:18
PROVIDERS: PCP Family Medicine; Referring Provider Obstetrics & Gynecology; Visit Provider Obstetrics & Gynecology
PROC: (CPT 58661; principal; 2023-05-06 08:15)
DX: Z30.2 Encounter for sterilization (principal); F41.8 Other specified anxiety disorders; E03.9 Hypothyroidism, unspecified; J45.909 Unspecified asthma, uncomplicated; G47.30 Sleep apnea, unspecified; Z99.89 Dependence on other enabling machines and devices
CPT/HCPCS: 58661; 00840; 81025; 85027; 86850; 86900; 86901; 88302; J7120; J2405

== ENCOUNTER → 2023-09-15 | Outpatient (CLI) | payer OTHER, SELFPAY ==
--- OUTSIDE RECORDS SUMMARY | 2023-09-15 17:11 | XMS RPT_ITS | CCD ---
Author Name Unknown Address [address] [place] [address] Organization [facility] Care Team Providers Care Change Management Analyst Name Role Phone Unavailable Primary Care Provider Unavailabl e Medications Current Medications Medication Drug Class(es) Dates Sig (Normalized) Sig (Original) 0.6 ml enoxaparin sodium 100 mg/ml prefilled syringe (1 source) Low Molecular Weight Heparin Start: 12-24-2021 enoxaparin (LOVENOX) injection 60 mg HYDROmorphone (DILAUDID) injection 0.25 mg (1 source) Start: 12-23-2021 HYDROmorphone (DILAUDID) injection 0.25 mg lanolin 1000 mg/ml topical cream (1 source) Start: 12-23-2021 Topical, EVERY 1 HOUR PRN, Dry Skin, nipple discomfort, Starting on Tue12/23/21 at 0105, 1 ml naloxone hydrochloride 0.4 mg/ml injection (1 source) Opioid Antagonist Start: 12-23-2021 naloxone (NARCAN) injection 0.4 mg oxyCODONE hydrochloride 5 mg oral tablet (2 sources) Opioid Agonist Start: 12-25-2021 End: 12-30-2021 take 1 tablet by mouth every six hours as needed for pain oxyCODONE (ROXICODONE) 5 MG immediate release tablet Indications: Status post delivery Take 1 tablet by mouth every 6 hours as needed for Pain for up to 5 days. 20 tablet 0 12/25/2021 12/30/2021 Active Completed/Discontinued Medications Medication Drug Class(es) Dates Sig (Normalized) Sig (Original) acetaminophen 325 mg oral tablet (1 source) Start: 12-23-2021 take 650 mg by mouth every six hours as needed, then take 4000 mg by mouth every twenty-four hours as needed 650 mg, Oral, EVERY 6 HOURS PRN, Starting on Tue12/23/21 at 0105, Until Discontinued, Pain Mild (1-3) Maximum dose of acetaminophen is 4000 mg from all sources in 24 hours. albuterol 0.417 mg/ml inhalation solution (2 sources) beta2-Adrenergic Agonist Start: 12-23-2021 0.63 mg, Nebulization, EVERY 6 HOURS PRN, Starting on Tue12/23/21 at 0105, Until Discontinued, Wheezing Initiate RT Bronchodilator Protocol: Yes Problems Problem Classification Problem Date Documented Da te Episodic/Chronic Hypertension complicating ; childbirth and the puerperium (2 sources) HELLP syndrome; Translations: [HELLP syndrome (HELLP), unspecified trimester] Onset: 12-22-2021 Episodic Results Test Name Value Interpretation Reference Range Facil ity Vital Signs Date Time Vital Sign Value Performing Clinician Faci lity 12-25-2021 08:36-0400 Body temperature 97.5 [degF] Linda Aquino MD Work Phone: [facility] 12-25-2021 08:36-0400 Diastolic blood pressure 81 mm[Hg] Linda Aquino MD Work Phone: [facility] 12-25-2021 08:36-0400 Heart rate 88 /min Linda Aquino MD Work Phone: [facility] 12-25-2021 08:36-0400 Respiratory rate 16 /min Linda Aquino MD Work Phone: [facility] 12-25-2021 08:36-0400 SaO2% (BldA) [Mass fraction] 96 % Linda Aquino MD Work Phone: [facility] 12-25-2021 08:36-0400 Systolic blood pressure 133 mm[Hg] Linda Aquino MD Work Phone: [facility] 12-22-2021 17:15-0400 Body height 160 cm Linda Aquino MD Work Phone: [facility] 12-22-2021 17:15-0400 Body mass index (BMI) [Ratio] 50.13 kg/m2 Linda Aquino MD Work Phone: [facility] 12-22-2021 17:15-0400 Body weight 128.37 kg Linda Aquino MD Work Phone: [facility] Encounters Encounter Date Encounter Type Care Provider Facility Start: 12-22-2021 End: 12-25-2021 Evaluation and management of inpatient Linda Aquino MD Work Phone: [facility] Procedures Date Procedure Procedure Detail Performing Clinician Start: 12-25-2021 Gluc bld gluc mntr d ev cleared fda spec home use Linda Aquino MD Work Phone: Start: 12-25-2021 Gluc bld gluc mntr d ev cleared fda spec home use Linda Aquino MD Work Phone: Start: 12-24-2021 Gluc bld gluc mntr d ev cleared fda spec home use Linda Aquino MD Work Phone: Start: 12-24-2021 Gluc bld gluc mntr d ev cleared fda spec home use Linda Aquino MD Work Phone: Start: 12-24-2021 Gluc bld gluc mntr d ev cleared fda spec home use Linda Aquino MD Work Phone: Start: 12-24-2021 Comprehensive metabo lic panel Linda Aquino MD Work Phone: Start: 12-24-2021 Gluc bld gluc mntr d ev cleared fda spec home use Linda Aquino MD Work Phone: Start: 12-23-2021 Gluc bld gluc mntr d ev cleared fda spec home use Linda Aquino MD Work Phone: Start: 12-23-2021 RPR REFLEX Ann Liang MD Work Phone: Start: 12-23-2021 Gluc bld gluc mntr d ev cleared fda spec home use Linda Aquino MD Work Phone: Start: 12-23-2021 LAB SCANNED REPORT Phys ician Generic Start: 12-23-2021 RHO(D) IMMUNE GLOBUL IN, Linda Aquino MD Work Phone: Start: 12-23-2021 PROTIME/INR & PTT Gisele Gross DO Work Phone: Start: 12-23-2021 End: 12-23-2021 Comprehensive metabolic panel Tessie Gross DO Work Phone: Start: 12-22-2021 Comprehensive metabo lic panel Elo Lee MD Work Phone: Start: 12-22-2021 PROTIME/INR & PTT Elo Lee MD Work Phone: Start: 12-22-2021 Antibody screen Linda sifuentes MD Work Phone: Start: 12-22-2021 NEHEMIAS FIBRINOLYSIS PANEL Tessie Gross DO Work Phone: Start: 12-22-2021 PROTIME/INR & PTT Gisele Gross DO Work Phone: Start: 12-22-2021 ADD ON LAB TEST Tessie Gross DO Work Phone: Start: 12-22-2021 Blood typing serolog ic abo Tessie Gross DO Work Phone: Start: 12-22-2021 End: 12-22-2021 Comprehensive metabolic panel Loretta Arteaga DO Work Phone: Start: 12-22-2021 PREPARE PLATELETS Gisele Gross DO Work Phone: H/O: section Status pos t delivery Linda Aquino MD Work Phone: Plan of Treatment Date Care Activity Detail Author Start: 12-24-2022 Creatinine measurement Creatinine [facility] Start: 12-24-2022 Potassium [Moles/vol ume] in Serum or Plasma Potassium [facility] Start: 05-06-2022 Influenza vaccination Flu vacc ine (Season Ended) [facility] Start: 2010 DTaP/Tdap/Td vaccine (1 - Tdap) DTaP/Tdap/Td vaccine (1 - Tdap) [facility] Start: 1996 COVID-19 Vaccine (1) COVID-19 Vaccin e (1) [facility] End: 12-22-2021 Fibrinogen [facility] Work Phone: Immunizations Immunization Date Immunization Notes Care Provider Jim clarkvicky 12-22-2021 KOFI) derrell daley in - IM Linda Aquino MD Work Phone: [facility] Work Phone: NEGATED: Highlighted row has not occurred!12-25-2021 measles, mumps and rubella virus vaccine Linda Aquino MD Work Phone: [facility] Social History Date Type Detail Facility Start: 12-22-2021 Tobacco smoking stat [facility] Never smoked tobacco [facility] Work Phone: Start: 12-22-2021 Tobacco use and exposure Smokeless tobacco non-user [facility] Work Phone: Start: 1990 Sex Assigned At Not on file [facility] Work Phone: Start: 12-12-2021 End: 12-22-2021 Exposure to SARS-CoV-2 (event) Not sure [facility] Work Phone: History of Present illness Narrative 12-25-2021 Sully Enciso RN - 12/25/2021 2:54 PM Octavio Garrett DO - 12/25/2021 5:07 AM Gerry Henry DTR - 12/24/2021 1:10 PM Maya Gant RN - 12/24/2021 12:07 PM EDT Note Date & Type Note Facility 12-25-2021 History of Present illness Narrative Pt discharged to home with , mother, and sister. Pt ambulatory at time of discharge and discharged with belongings. Images from the original note were not included. POST OPERATIVE DAY # 3 Nadia Townsend is a 31 y.o. who was seen & examined today. Her was complicated by: Patient Active Problem List Diagnosis HELLP (hemolytic anemia/elev liver enzymes/low platelets in ), antepartum Today she is doing well without any chief complaint. Her lochia is light. She denies chest pain, shortness of breath, headache, blurred vision and RUQ pain. She is ambulating well. Flatus present. Voiding spontaneously. She is tolerating solids. Pain is controlled yes. Vital Signs: Vitals: 12/24/21 0754 12/24/21 1135 12/24/21 1723 12/24/21 1941 BP: 128/70 124/75 (!) 150/91 121/75 Pulse: 85 89 81 96 Resp: Temp: 98.3 F (36.8 C) 97 F (36.1 C) 97.1 F (36.2 C) 96.9 F (36.1 C) TempSrc: Temporal Temporal Temporal Temporal SpO2: 97% 96% 97% 96% Weight: Height: Urine Input & Output last 24hrs: Intake/Output Summary (Last 24 hours) at 12/25/2021 0507 Last data filed at 12/24/2021 1712 Gross per 24 hour Intake 1200 ml Output 1030 ml Net 170 ml Physical Exam: GENERAL APPEARANCE: alert, well appearing, in no apparent distress ABDOMEN : fundus firm, no acute ttp, dressing remains over incision EXTREMITIES: no redness or tenderness in the calves or thighs NEUROLOGIC: alert, oriented, normal speech, no focal findings or movement disorder noted Labs: Lab Results Component Value Date WBC 11.6 (H) 12/24/2021 HGB 7.5 (L) 12/24/2021 HCT 22.2 (L) 12/24/2021 MCV 86.6 12/24/2021 PLT 113 (L) 12/24/2021 O NEG Antibody Screen: Antibody Screen Date Value Ref Range Status 12/23/2021 POS, see [id number] FOR ABID NA Final No results found for: RUBELLAIGG LABOR DELIVERY ??? SCD's ONLY (labor through ambulation) SCD's PLUS Prophylactic Anticoagulation until discharge SCD's PLUS Prophylactic Anticoagulation for 6 weeks SCD's PLUS Therapeutic Anticoagulation for 6 weeks Vaginal Delivery [] BMI ? 40 kg/m2 Delivery All patients Vaginal Delivery [] BMI ? 40 kg/m2 AND [] Antepartum hospitalization ? 72 hours within the past month Delivery 1 Major Risk Factor: [x] BMI ? 35 kg/m2 [] Low Risk Thrombophilia [] PPH+RBCs, IR, or operation [] Infection+Antibiotics [] Antepartum hospitalization ? 72 hours within the past month [] PMH: Sickle Cell, SLE, Cardiac Dz, Active IBD, Active Cancer, Nephrotic Syndrome OR 2 Minor Risk Factors: [] Multiple gestation [] Age > 40 [] PPH ? 1,000cc [] (+)FMH of VTE [] Smoker [] Preeclampsia [] BMI ? 40 kg/m2 AND [] Low Risk Thrombophilia OR ANY OF THE FOLLOWING: [] High Risk Thrombophilia without prior VTE [] Low Risk Thrombophilia with (+)FMH of VTE [] Any single prior VTE ANY OF THE FOLLOWING: [] Already on LMWH/UFH [] Multiple prior VTE [] High Risk Thrombophilia with prior VTE Low Risk Thrombophilia: FVL (heterozygous), Prothrombin (heterozygous), Protein C, Protein S High Risk Thrombophilia: FVL (homozygous), Prothrombin (homozygous), FVL+Prothrombin (heterozygous), Antithrombin III, APLS Assessment/Plan: 1. Nadia Townsend is a 31 y.o. POD # 3 s/p PLTCS 2/2 HELLP syndrome 2. Care - Doing well, VSS - Female infant - Breast feeding - Contraception: Per Private Attending - Encourage ambulation and use of incentive spirometer - Postop Hb 9.1 - VTE Prophylaxis: Prophylactic Dosing until Discharge 3. HELLP Syndrome -BP remains normotensive with rare mild range, no meds -S/p magnesium sulfate for seizure ppx -Plts improved, LFTs improved -Asx this AM 4. GDMA2 -Antepartum Regimen: Novolog 18u qhs -Continue trending fasting and 1 hr postprandial -BGTs have been improving, will need 2hr GTT PP 5. Acute on Chronic Anemia -Hgb 11.4-->9.1 -Lochia light -Continue PO iron and colace 6. Obesity/TORIE -BMI 50 -Continue lovenox until discharge for VTE ppx -Continue home CPAP 7. Depression/Anxiety -Continue home Celexa, mood stable this AM 8. Disposition: Anticipate discharge today per private attending's discretion Based on my clinical assessment, this patient is safe for self discharge (does not need transport by wheelchair) if she so chooses. Provider's Name: MD Loretta Bejarano DO 12/25/2021, 5:07 AM ATTENDING NOTE: I personally saw and evaluated the patient. I reviewed the care provided by the Resident or Advance Practice Provider including the patient's medical history, physical exam findings, diagnosis and treatment plan. I also agree with the documentation from the Resident or Advance Practice Provider unless otherwise indicated: Pt is doing well. Ok for d/c. Pt will f/u for BP with her OBG in [place] in 1 week. --- Total time spent discharging the patient was les than 30 minutes, of which greater than 50% of the time was spent counseling and coordinating care. Nutrition rescreen completed. Patient assigned a level 1. Formula given upon recommendation of . Discussed paced bottle feeding . Mom states wishes to feed via bottle not cup . Pt is worried the baby isn't getting enough milk . She has been bf and also pumping and feeding the baby 5 cc of pumped milk via cup. States baby does well with cup feeding. Enc given. Observed mother trying to latch , baby fussy with vigorous rooting, mother appears stressed and states 'I think she feeds off of my stress' . Enc her to calm infant and help offered. Mother frequently uses finger to calm baby and pacifier in room. Enc watching for early feeding cues and bf on cue. Baby latches after several times and maintains for a few minutes with a few swallows. Baby unlatches and becomes fussy again with more rooting. Mother moves baby to various positioned. Enc her to bf on cue, pump and supplement q 3 hours. Pt states she is sore and as baby tries to latch, she says she is done with that nipple' do to soreness. discussed nipple soreness remedies and pump break if needed. Discussed volumes needed and potential formula use if volume of javier not available. Reviewed feeding cues, I&O, skin to skin and clsuter feeding. Reviewed Taking care of you and your baby . Informed of support and how to contact as needed. Verbalizes understanding. Images from the original note were not included. POST OPERATIVE DAY # 2 Nadia Townsend is a 31 y.o. who was seen & examined today. Her was complicated by: Patient Active Problem List Diagnosis HELLP (hemolytic anemia/elev liver enzymes/low platelets in ), antepartum Today she is doing well without any chief complaint. Her lochia is light. She denies chest pain, shortness of breath, headache, blurred vision and RUQ pain. She is ambulating well. Flatus present. Bowel movement absent. Voiding spontaneously. She is tolerating solids. Pain is controlled yes. Vital Signs: Vitals: 12/23/21 1517 12/23/21 1920 12/23/21 2304 12/24/21 0425 BP: 126/81 121/71 138/76 133/75 Pulse: 97 93 95 90 Resp: 16 16 16 18 Temp: 97.8 F (36.6 C) 97.6 F (36.4 C) 98 F (36.7 C) 97.6 F (36.4 C) TempSrc: Temporal Temporal Temporal Temporal SpO2: 94% 95% 96% 97% Weight: Height: Urine Input & Output last 24hrs: Intake/Output Summary (Last 24 hours) at 12/24/2021 0533 Last data filed at 12/24/2021 0200 Gross per 24 hour Intake 250 ml Output 1010 ml Net -760 ml Physical Exam: GENERAL APPEARANCE: alert, well appearing, in no apparent distress ABDOMEN : fundus firm, no acute ttp EXTREMITIES: no redness or tenderness in the calves or thighs NEUROLOGIC: alert, oriented, normal speech, no focal findings or movement disorder noted Labs: Lab Results Component Value Date WBC 11.6 (H) 12/24/2021 HGB 7.5 (L) 12/24/2021 HCT 22.2 (L) 12/24/2021 MCV 86.6 12/24/2021 PLT 113 (L) 12/24/2021 O NEG Antibody Screen: Antibody Screen Date Value Ref Range Status 12/23/2021 POS, see [id number] FOR ABID NA Final No results found for: RUBELLAIGG LABOR DELIVERY ??? SCD's ONLY (labor through ambulation) SCD's PLUS Prophylactic Anticoagulation until discharge SCD's PLUS Prophylactic Anticoagulation for 6 weeks SCD's PLUS Therapeutic Anticoagulation for 6 weeks Vaginal Delivery [] BMI ? 40 kg/m2 Delivery All patients Vaginal Delivery [] BMI ? 40 kg/m2 AND [] Antepartum hospitalization ? 72 hours within the past month Delivery 1 Major Risk Factor: [x] BMI ? 35 kg/m2 [] Low Risk Thrombophilia [] PPH+RBCs, IR, or operation [] Infection+Antibiotics [] Antepartum hospitalization ? 72 hours within the past month [] PMH: Sickle Cell, SLE, Cardiac Dz, Active IBD, Active Cancer, Nephrotic Syndrome OR 2 Minor Risk Factors: [] Multiple gestation [] Age > 40 [] PPH ? 1,000cc [] (+)FMH of VTE [] Smoker [] Preeclampsia [] BMI ? 40 kg/m2 AND [] Low Risk Thrombophilia OR ANY OF THE FOLLOWING: [] High Risk Thrombophilia without prior VTE [] Low Risk Thrombophilia with (+)FMH of VTE [] Any single prior VTE ANY OF THE FOLLOWING: [] Already on LMWH/UFH [] Multiple prior VTE [] High Risk Thrombophilia with prior VTE Low Risk Thrombophilia: FVL (heterozygous), Prothrombin (heterozygous), Protein C, Protein S High Risk Thrombophilia: FVL (homozygous), Prothrombin (homozygous), FVL+Prothrombin (heterozygous), Antithrombin III, APLS Assessment/Plan: 1. Nadia Townsend is a 31 y.o. POD # 2 s/p PLTCS 2/2 HELLP Syndrome 2. Care - Doing well, VSS - Female - Breast feeding - Contraception: Per Private Attending - Encourage ambulation and use of incentive spirometer - Postop Hb 9.1 - VTE Prophylaxis: Prophylactic Dosing until Discharge 3. HELLP Syndrome -BP normotensive to mild range in last 24 hours, no meds -S/p plt transfusion, now stable at 113 and LFTs improved -Coags WNL on admission -S/p Magnesium sulfate for seizure ppx -Asx this AM, clinically well appearing 4. GDMA2 -Antepartum regimen: Novolog 18u qhs -Continue to trend fasting and 1 hr postprandials -Fasting BGT elevated, postprandials remain <180 5. Acute on Chronic Anemia -Hgb 11.4-->9.1 -Lochia light this AM -Continue PO iron and colace 6. Rh Negative -Rhogam given PP per protocol 7. Asthma -Asx this AM 8. Depression/Anxiety -Continue home Celexa -Mood stable this AM 9. Obesity 10. TORIE -BMI 50 -Plan to start lovenox until discharge for VTE ppx -Continue home CPAP 11. Disposition: Continue current care Based on my clinical assessment, this patient is safe for self discharge (does not need transport by wheelchair) if she so chooses. Provider's Name: MD Loretta Bejarano DO 12/24/2021, 5:33 AM ATTENDING NOTE: I personally saw and evaluated the patient. I reviewed the care provided by the Resident or Advance Practice Provider including the patient's medical history, physical exam findings, diagnosis and treatment plan. I also agree with the documentation from the Resident or Advance Practice Provider unless otherwise indicated: Doing well. PreE labs improving. Asx for preE. --- Total time spent with the patient was 15 minutes, of which greater than 50% of the time was spent counseling and coordinating care. Images from the original note were not included. POST OPERATIVE DAY # 1 Nadia Townsend is a 31 y.o. who was seen & examined today. Her was complicated by: Patient Active Problem List Diagnosis HELLP (hemolytic anemia/elev liver enzymes/low platelets in ), antepartum Today she is doing well without any chief complaint. Her lochia is light. She denies chest pain, shortness of breath and headache. She has not yet ambulated. Flatus absent. Bowel movement absent. Wilson catheter remains in place. She has not yet had solid diet. Pain is controlled yes. Vital Signs: Vitals: 12/22/21 1735 12/22/21 2220 12/23/21 0145 12/23/21 0515 BP: (!) 149/77 135/81 136/77 Pulse: 82 97 91 Resp: 16 18 18 Temp: 98 F (36.7 C) 97.3 F (36.3 C) 97.8 F (36.6 C) 98.2 F (36.8 C) TempSrc: Oral Tympanic Oral Oral SpO2: 98% Weight: Height: Urine Input & Output last 24hrs: Intake/Output Summary (Last 24 hours) at 12/23/2021 0612 Last data filed at 12/22/2021 2255 Gross per 24 hour Intake Output 2620 ml Net -2620 ml Physical Exam: GENERAL APPEARANCE: alert, well appearing, in no apparent distress ABDOMEN : benign non-tender, without masses or organomegaly palpable Incision: Dressing in place Labs: Lab Results Component Value Date WBC 13.2 (H) 12/23/2021 HGB 9.1 (L) 12/23/2021 HCT 27.1 (L) 12/23/2021 MCV 85.9 12/23/2021 PLT 79 (L) 12/23/2021 O NEG Antibody Screen: Antibody Screen Date Value Ref Range Status 12/22/2021 POS NA Final LABOR DELIVERY ??? SCD's ONLY (labor through ambulation) SCD's PLUS Prophylactic Anticoagulation until discharge SCD's PLUS Prophylactic Anticoagulation for 6 weeks SCD's PLUS Therapeutic Anticoagulation for 6 weeks Vaginal Delivery [] BMI ? 40 kg/m2 Delivery All patients Vaginal Delivery [] BMI ? 40 kg/m2 AND [] Antepartum hospitalization ? 72 hours within the past month Delivery 1 Major Risk Factor: [x] BMI ? 35 kg/m2 [] Low Risk Thrombophilia [] PPH+RBCs, IR, or operation [] Infection+Antibiotics [] Antepartum hospitalization ? 72 hours within the past month [] PMH: Sickle Cell, SLE, Cardiac Dz, Active IBD, Active Cancer, Nephrotic Syndrome OR 2 Minor Risk Factors: [] Multiple gestation [] Age > 40 [] PPH ? 1,000cc [] (+)FMH of VTE [] Smoker [] Preeclampsia [] BMI ? 40 kg/m2 AND [] Low Risk Thrombophilia OR ANY OF THE FOLLOWING: [] High Risk Thrombophilia without prior VTE [] Low Risk Thrombophilia with (+)FMH of VTE [] Any single prior VTE ANY OF THE FOLLOWING: [] Already on LMWH/UFH [] Multiple prior VTE [] High Risk Thrombophilia with prior VTE Low Risk Thrombophilia: FVL (heterozygous), Prothrombin (heterozygous), Protein C, Protein S High Risk Thrombophilia: FVL (homozygous), Prothrombin (homozygous), FVL+Prothrombin (heterozygous), Antithrombin III, APLS Assessment/Plan: 1. Nadia Townsend is a 31 y.o. POD # 1 s/p PLTCS 2/2 HELLP Syndrome Care - Doing well, VSS - Female infant - Breast feeding - Contraception: Per Private Attending - Encourage ambulation and use of incentive spirometer - D/C wilson catheter and saline lock IV on POD #1 - Postop Hb 9.1 - VTE Prophylaxis: Ppx dosing until discharge, will discuss w/ attending prior to administration due to low platelets HELLP Syndrome - Previously dx w/ gestational thrombocytopenia but presented yesterday w/ Plt 71 and ^LFTs and LDH - Delivered via PCD upon transfer due to worsening labs - Plt stable, LFTs improving this AM - Coags wnl - BP normotensive to mild range - Magnesium sulfate running for seizure prophylaxis - Asymptomatic GDMA2 - Antepartum regimen: Novolog 18U qhs - Trend BGTs fasting, 1h PP - Fasting BGT pending this AM Acute on chronic anemia - Hgb 9.1 from 11.4 prior to transfer to [facility] - Bleeding minimal per RN - PO iron and colace Rh neg - Rhogam protocol PP Asthma - Asymptomatic Depression/Anxiety - Continue Celexa - Mood stable Obesity - BMI 50 - Will discuss Lovenox w/ attending Disposition: Continue current care Provider's Name: MD Shalini Bejarano, 12/23/2021, 6:12 AM MFM I reviewed and agree with the care provided by the resident/CNM/ESTIVEN during the visit including the patient's medical history, the resident's findings in the physical exam, patient's diagnosis and treatment plan I independently saw the patient and agree with the plan. Her labs are improving and she can be transferred to s/p platelets yesterday RH positive and given rhogam to cover to hope for no sensitization and discussed this with the family Ongoing magnesium for 24 hours post delivery and will follow for possible need for BP medication addition to maintain consistent BP < 150/90 I spent 15 minutes counseling of this patient, questions answered and resident and nursing at the bedside as well Blood bank called and let us know that T&S will be delayed due to antibodies. Likely secondary to rhogam but it will take 30 minutes to result. Cannot send platelets or hold blood until it results. Discussed with TECHNICAL RESEARCH SCIENTIST, will defer proceeding with PCD until T&S is resulted and platelets are infusing. RN called blood bank for update. They said another 5-10 minutes but possibly longer. Discussed with Dr. Garrett, will continue to wait for platelets. Blood bank informed us that they do not have O- platelets. Discussed options with blood bank. They recommend giving O positive platelets and a dose of rhogam. Discussed with anesthesia and all in agreement to give O positive platelets and rhogam. Currently with Cat II FHT section which is moving to the OR now. Do not have staffing to run 2 rooms at the same time. Cat II PCD to proceed now followed by this PCD. documented in this encounter [facility] Work Phone: Discharge summary note 12-25-2021 Note Date & Type Note Facility 12-25-2021 Note Department of Obstet rics and Gynecology Delivery Discharge Summary Admission on 12/22/2021 4:28 PM Hospital course: Pt is 38w4d [place] transport who was found to have HELLP syndrome. Pt arrived on magnesium sulfate. Pt's platelet continued to trend down as platelet transfusion was ordered. M ordered delivery by csection since pt was remote from delivery. Pt was then delivered by vacuum-assisted primary csection [see Notes for details]. Uterine atony leading to PPH occurred. course was unremarkable. Surgical Operations & Procedures: Date of delivery: 12/22/21 Procedure: without labor, vacuum-assisted Anesthesia: General Endotracheal Anesthesia Laceration(s): n/a Delivery Complications: hemorrhage, uterine atony EBL: 1000 cc; QBL 1920 cc Pertinent Findings & Procedures: Information for the patient's : Isabel Townsend [[id number]] child Weight: 7 lb 5.3 oz (3.325 kg) Apgars: Information for the patient's : Isabel Townsend [[id number]] One Minute : 8 Five Minute : 9 Course: Uncomplicated Infant: Live female infant, Blood Type/Rh: O NEG Antibody Screen: Antibody Screen Date Value Ref Range Status 12/22/2021 POS NA Final Rubella: No results found for: RUBELLAIGG Contraception: no method : yes VTE Prophylaxis: Prophylactic Dosing until Discharge Home Meds: Medication List ASK your doctor about these medications albuterol 0.63 MG/3ML nebulizer solution Commonly known as: ACCUNEB citalopram 40 MG tablet Commonly known as: CELEXA ferrous sulfate 325 (65 Fe) MG tablet Commonly known as: IRON 325 insulin NPH 100 UNIT/ML injection vial Commonly known as: HUMULIN N;NOVOLIN N levothyroxine 25 MCG tablet Commonly known as: SYNTHROID 1 PO Meds at Discharge: Medication List START taking these medications oxyCODONE 5 MG immediate release tablet Commonly known as: ROXICODONE Take 1 tablet by mouth every 6 hours as needed for Pain for up to 5 days. CONTINUE taking these medications albuterol 0.63 MG/3ML nebulizer solution Commonly known as: ACCUNEB citalopram 40 MG tablet Commonly known as: CELEXA ferrous sulfate 325 (65 Fe) MG tablet Commonly known as: IRON 325 levothyroxine 25 MCG tablet Commonly known as: SYNTHROID 1 PO STOP taking these medications insulin NPH 100 UNIT/ML injection vial Commonly known as: HUMULIN N;NOVOLIN N Where to Get Your Medications These medications were sent to [facility] - [address] - [phone] - F [phone] [address] [facility] [address] ? oxyCODONE 5 MG immediate release tablet Activity: Activity as tolerated Diet: Regular diet Follow-up Appointments: _x_ visit _x_ incision check _x_ blood pressure check _x_ blood sugar check/ 2-hr GTT _x_ depression screen __ other: Condition on discharge: Stable Discharge to: Home Discharge date: 12/25/21 Discharge Dx: 1. S/p VA-PLTCS at 38w4d 2. HELLP 3. PPH 4. GDMA2 5. Rh negative 6. Antepartum anemia 7. TORIE 8. Depression/ anxiety 9. Obesity HELLP (hemolytic anemia/elev liver enzymes/low platelets in ), antepartum [O14.20] Patient Active Problem List Diagnosis ? HELLP (hemolytic anemia/elev liver enzymes/low platelets in ), antepartum Comments: Home care, Follow-up care and control were reviewed. Signs and symptoms of mastitis and Depression were reviewed. The patient is to notify her physician if any of these occur. [facility] Hospital course Narrative 12-25-2021 Leyda Garrett DO - 12/25/2021 12:30 PM EDT Note Date & Type Note Facility 12-25-2021 Hospital course Narrative Images from the original note were not included. Department of Obstetrics and Gynecology Delivery Discharge Summary Admission on 12/22/2021 4:28 PM Hospital course: Pt is 38w4d [place] transport who was found to have HELLP syndrome. Pt arrived on magnesium sulfate. Pt's platelet continued to trend down as platelet transfusion was ordered. [facility] ordered delivery by csection since pt was remote from delivery. Pt was then delivered by vacuum-assisted primary csection [see Notes for details]. Uterine atony leading to PPH occurred. course was unremarkable. Surgical Operations & Procedures: Date of delivery: 12/22/21 Procedure: without labor, vacuum-assisted Anesthesia: General Endotracheal Anesthesia Laceration(s): n/a Delivery Complications: hemorrhage, uterine atony EBL: 1000 cc; QBL 1920 cc Pertinent Findings & Procedures: Information for the patient's : Isabel Townsend [[id number]] child Weight: 7 lb 5.3 oz (3.325 kg) Apgars: Information for the patient's : Isabel Townsend [[id number]] One Minute : 8 Five Minute : 9 Course: Uncomplicated : Live female , Blood Type/Rh: O NEG Antibody Screen: Antibody Screen Date Value Ref Range Status 12/22/2021 POS NA Final Rubella: No results found for: RUBELLAIGG Contraception: no method : yes VTE Prophylaxis: Prophylactic Dosing until Discharge Home Meds: Medication List ASK your doctor about these medications albuterol 0.63 MG/3ML nebulizer solution Commonly known as: ACCUNEB citalopram 40 MG tablet Commonly known as: CELEXA ferrous sulfate 325 (65 Fe) MG tablet Commonly known as: IRON 325 insulin NPH 100 UNIT/ML injection vial Commonly known as: HUMULIN N;NOVOLIN N levothyroxine 25 MCG tablet Commonly known as: SYNTHROID 1 PO Meds at Discharge: Medication List START taking these medications oxyCODONE 5 MG immediate release tablet Commonly known as: ROXICODONE Take 1 tablet by mouth every 6 hours as needed for Pain for up to 5 days. CONTINUE taking these medications albuterol 0.63 MG/3ML nebulizer solution Commonly known as: ACCUNEB citalopram 40 MG tablet Commonly known as: CELEXA ferrous sulfate 325 (65 Fe) MG tablet Commonly known as: IRON 325 levothyroxine 25 MCG tablet Commonly known as: SYNTHROID 1 PO STOP taking these medications insulin NPH 100 UNIT/ML injection vial Commonly known as: HUMULIN N;NOVOLIN N Where to Get Your Medications These medications were sent to [facility] [address] - P [phone] - F [phone] [address] [place] [address] oxyCODONE 5 MG immediate release tablet Activity: Activity as tolerated Diet: Regular diet Follow-up Appointments: _x_ visit _x_ incision check _x_ blood pressure check _x_ blood sugar check/ 2-hr GTT _x_ depression screen __ other: Condition on discharge: Stable Discharge to: Home Discharge date: 12/25/21 Discharge Dx: 1. S/p VA-PLTCS at 38w4d 2. HELLP 3. PPH 4. GDMA2 5. Rh negative 6. Antepartum anemia 7. TORIE 8. Depression/ anxiety 9. Obesity HELLP (hemolytic anemia/elev liver enzymes/low platelets in ), antepartum [O14.20] Patient Active Problem List Diagnosis HELLP (hemolytic anemia/elev liver enzymes/low platelets in ), antepartum Comments: Home care, Follow-up care and control were reviewed. Signs and symptoms of mastitis and Depression were reviewed. The patient is to notify her physician if any of these occur. documented in this encounter [facility] Work Phone: Hospital Discharge instructions 12-22-2021 Instructions Note Date & Type Note Facility 12-22-2021 Hospital Discharg e Leyda Muller DO - 12/22/2021 Images from the original note were not included. After Your Delivery (the Period): Your Care Instructions Congratulations on the of your baby. Like , the period can be a time of excitement, veto, and exhaustion. You may look at your wondrous little baby and feel happy. You may also be overwhelmed by your new sleep hours and new responsibilities. In these first weeks after delivery, try to take good care of yourself. It may take 4 to 6 weeks to feel like yourself again, and possibly longer if you had a . You will likely feel very tired for several weeks. Your days will be full of ups and downs, but lots of veto as well. FOLLOW-UP: Your follow-up care is a lambert part of your treatment and safety. Follow-up with your OB doctor in 4-6 weeks or as specified by your physician. Be sure to make and go to all appointments, and call your doctor if you are having problems. It's also a good idea to know your test results and keep a list of the medicines you take. BLEEDING Vaginal bleeding will decrease in amount over the next few weeks but be present for as long as 8 weeks after delivery. 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 Use pads instead of tampons for the bloody flow that may last as long as 2 weeks. You will notice that as your activity increases, your flow may increase. Call your doctor if you are saturating one maxi pad in an hour & passing large clots for 3 hours or more. ACTIVITY NO SEXUAL activity for 6 weeks or until advised by your doctor. Nothing in the vagina for 6 weeks: e.g.) intercourse, tampons, or douching. Showering is okay; NO tub baths, swimming, or hot tubs for 6 weeks. Gradually increase your activity. Resume exercise regimen only after advice by your doctor. Avoid lifting anything heavier than your baby or a gallon of milk for six weeks. Avoid driving 1 week for vaginal delivery and 2 weeks for section, or longer if you are on prescription pain medicine unless otherwise instructed by your doctor. Rise slowly from a lying to sitting and then a standing position. Climb stairs carefully. Use caution when carrying your baby up and down the stairs. You may feel tired or have a lack of energy. Nap when baby naps to catch up on sleep. You may continue your vitamin to replenish nutrients post delivery. EMOTIONS You may feel ward, sad, teary, & overwhelmed for the first 2 weeks ; however, feelings of post depression may occur any time within the first year after delivery. Contact your OB provider if you feel you may be showing signs of depression, or have thoughts of harming yourself or your infant. If will not stop crying, contact another adult for help or place infant in their crib on their back and take a break. NEVER shake your . WOUND CARE For Vaginal Delivery: Shower daily, and cleanse your perineum (bottom) with mild soap from front to Back. Use the plastic squirt bottle until bleeding stops each time you use the restroom instead of wiping with toilet paper. Ease soreness of hemorrhoids and the area between your vagina and rectum with ice compresses or witch sb pads. If used, stitches will dissolve in 4-6 weeks on their own. You may use a sitz bath or soak in a clean tub with drain open and water running for comfort. Kegel exercises will help restore bladder control. To do these tighten your muscles as if you were stopping your urine flow. Hold for a few seconds and then relax. Do these throughout the day. For Section Delivery: Keep your incision clean and dry. If you had steri-strips you may remove these once they start peeling off. If you have koki they need to be removed 3-10 days after delivery. If you have steri-strips, remove after 10-14 days. Do not wear clothing that irritates the incision line. If your incision in in a crease that is not dry, use a hair-dryer to dry the area 3 times a day. If you develop fever, shaking chills, redness, swelling, drainage or discharge from your wound, or if your wound looks like it's coming apart call your doctor immediately. For Tubal Ligation: Remove dressing 3 days after being discharged from the hospital. If you develop fever, shaking chills, redness, swelling, drainage or discharge from your wound, or if your wound looks like it's coming apart call your doctor immediately. BREAST CARE If you develop a warm, red, tender area on your breast or develop a fever contact your doctor. For moms: If you become engorged, feeding may be more difficult or painful for 1-2 days. You may find it helpful to hand express some milk so that the infant can latch on more easily or ease soreness with wet, warm washcloths. While , continue to take your vitamins as directed by your doctor. For non- moms: You may apply ice packs to your breasts over you bra for twenty minutes at a time for comfort. Cabbage leaves may be applied to breasts, replace when wilted. Avoid stimulation to your breasts, when showering allow the water to strike your back not your breasts. Do not express milk or your body will make more. Wear a good fitting bra until your milk dries, such as a sports bra. DIET & CONSTIPATION Eat a well balanced diet focusing on foods high in fiber and protein such as: whole grain cereals and breads, fruits and vegetables and legumes (eg, beans, lentils) Drink 8-10 glasses of fluids daily, especially water. To avoid constipation you may take a mild zsax-uaw-tcirzlb stool softener (such as colace) as recommended by your doctor. SWELLING Try to keep your legs elevated when you are sitting or lying down. Stay hydrated and take walks. BABY Babies sleep safest on their back in a crib without bumpers, blankets or stuffed animals. DO NOT sleep with your baby in your bed or the couch. DO NOT expose baby to smoke, this can increase risks of asthma and sudden infant syndrome. If you or someone around baby smokes have them change their shirt and wash any facial hair before holding baby. Do not smoke inside the house and change the ventilation filters in the house before bringing baby home. WHEN TO CALL THE DOCTOR Signs of infection, including fever (101oF) and chills. Increased bleeding: soaking more than one sanitary pad an hour. Wounds that become red, swollen or drain pus. Vaginal discharge that smells foul. Headaches that lasts several hours and will not go away even with headache medications. Visual changes that last several hours and will not go away. Significant pain immediately below your rib cage. New pain, swelling, or tenderness in your legs Pain that you can't control with the medications you've been given. Pain, burning, urgency or frequency of urination, or persistent bleeding in the urine. Cough, shortness of breath, or chest pain. Depression, suicidal thoughts, or feelings of harming your baby. Breasts that are hot, red and accompanied by fever. Any cracking or bleeding from the nipple or areola (the dark-colored area of the breast). In case of an emergency, call 911 immediately. If you are Covid-19 positive or a Person Under Investigation (PUI) Trwgim-un-bbdae transmission of COVID-19 during is unlikely, but after a baby is susceptible to kvpzxl-vx-jwiwky spread. After your baby is born, your health care provider may recommend you not hold your baby and/or that you stay in a separate room from your baby until you get better. If you and your baby are not , wear a facemask at all times and wash your hands thoroughly before touching, holding or feeding your baby. Baby Care & Feeding has many benefits for you and your baby and is the best food for your baby. From what experts know so far, COVID-19 has not been found in breastmilk. Having a healthy adult who can assist with baby care until you get better is important, you may want to have a healthy adult feed your baby your expressed breast milk or formula if you chose to not breastfeed. You may use a breast pump to express your breast milk. Wear a face mask, wash your breasts, then wash your hands thoroughly before touching the breast pump and bottle parts. Clean all pump parts after each use. If you choose to breastfeed from your breast, wear a face mask, wash your breasts, wash your hands thoroughly before feeding your baby. These could be signs that your COVID-19 symptoms are worsening and you may need emergency care: You are severely dizzy or lightheaded. You are confused or can't think clearly. Your face and lips have a blue color. You are unable to respond to others or are very hard to wake up. Prevention steps for People with confirmed or suspected COVID-19 (including persons under investigation) who do not need to be hospitalized AND People with confirmed COVID-19 who were hospitalized and determined to be medically stable to go home Your healthcare provider and public health staff will evaluate whe ther you can be cared for at home. If it is determined that you do not need to be hospitalized and can be isolated at home, you will be monitored by staff from your local or state health department. You should follow the prevention steps below until a healthcare provider or local or state health department says you can return to your normal activities. Stay home except to get medical care People who are mildly ill with COVID-19 are able to isolate at home during their illness. You should restrict activities outside your home, except for getting medical care. Do not go to work, school, or public areas. Avoid using public transportation, ride-sharing, or taxis. Separate yourself from other people and animals in your home People: As much as possible, you should stay in a specific room and away from other people in your home. Also, you should use a separate bathroom, if available. Animals: You should restrict contact with pets and other animals while you are sick with COVID-19, just like you would around other people. Although there have not been reports of pets or other animals becoming sick with COVID-19, it is still recommended that people sick with COVID-19 limit contact with animals until more information is known about the virus. When possible, have another member of your household care for your animals while you are sick. If you are sick with COVID-19, avoid contact with your pet, including petting, snuggling, being kissed or licked, and sharing food. If you must care for your pet or be around animals while you are sick, wash your hands before and after you interact with pets and wear a facemask. Call ahead before visiting your doctor If you have a medical appointment, call the healthcare provider and tell them that you have or may have COVID-19. This will help the healthcare provider's office take steps to keep other people from getting infected or exposed. Wear a facemask You should wear a facemask when you are around other people (e.g., sharing a room or vehicle) or pets and before you enter a healthcare provider's office. If you are not able to wear a facemask (for example, because it causes trouble breathing), then people who live with you should not stay in the same room with you, or they should wear a facemask if they enter your room. Cover your coughs and sneezes Cover your mouth and nose with a tissue when you cough or sneeze. Throw used tissues in a lined trash can. Immediately wash your hands with soap and water for at least 20 seconds or, if soap and water are not available, clean your hands with an alcohol-based hand multilith operator that contains at least 60% alcohol. Clean your hands often Wash your hands often with soap and water for at least 20 seconds, especially after blowing your nose, coughing, or sneezing; going to the bathroom; and before eating or preparing food. If soap and water are not readily available, use an alcohol-based hand multilith operator with at least 60% alcohol, covering all surfaces of your hands and rubbing them together until they feel dry. Soap and water are the best option if hands are visibly dirty. Avoid touching your eyes, nose, and mouth with unwashed hands. Avoid sharing personal household items You should not share dishes, drinking glasses, cups, eating utensils, towels, or bedding with other people or pets in your home. After using these items, they should be washed thoroughly with soap and water. Clean all high-touch surfaces everyday High touch surfaces include counters, tabletops, doorknobs, bathroom fixtures, toilets, phones, keyboards, tablets, and bedside tables. Also, clean any surfaces that may have blood, stool, or body fluids on them. Use a household cleaning spray or wipe, according to the label instructions. Labels contain instructions for safe and effective use of the cleaning product including precautions you should take when applying the product, such as wearing gloves and making sure you have good ventilation during use of the product. Monitor your symptoms Seek prompt medical attention if your illness is worsening (e.g., difficulty breathing). Before seeking care, call your healthcare provider and tell them that you have, or are being evaluated for, COVID-19. Put on a facemask before you enter the facility. These steps will help the healthcare provider's office to keep other people in the office or waiting room from getting infected or exposed. Ask your healthcare provider to call the local or state health department. Persons who are placed under active monitoring or facilitated self-monitoring should follow instructions provided by their local health department or occupational health professionals, as appropriate. When working with your local health department check their available hours. If you have a medical emergency and need to call 911, notify the dispatch personnel that you have, or are being evaluated for COVID-19. If possible, put on a facemask before emergency medical services arrive. Discontinuing home isolation Patients with confirmed COVID-19 should remain under home isolation precautions until the risk of secondary transmission to others is thought to be low. The decision to discontinue home isolation precautions should be made on a jkgm-sy-cjis basis, in consultation with healthcare providers and state and local health departments. Information on COVID-19 for ALL patients Call your provider before your next appointment if you develop any of the following symptoms: fever, cough, fatigue, anorexia, shortness of breath, sputum production, and muscle pains. Headache, confusion, rhinorrhea, sore throat, hemoptysis, vomiting, and diarrhea have been reported but are less common. Some persons with COVID-19 have experienced gastrointestinal symptoms such as diarrhea and nausea prior to developing fever and lower respiratory tract signs and symptoms. Ways to [place] with Anxiety & Stress It is normal to feel anxious or worried about COVID-19. You might feel sad about canceling celebrations and staying away from family and friends. Keep in mind that most people do not get severely ill from COVID-19. It is important to have a plan in case you get sick to prevent spreading the disease to others including an Advanced Care Plan (communicating and documenting your desired health care plan with family and healthcare team). You can take care of yourself by: o Taking a break from watching the news o Take deep breaths, stretch or meditate o Getting exercise, eating healthy foods, and drinking plenty of water o Finding activities you can enjoy inside your home o Staying in touch with your family and friends. Tell your partner, family, and friends how you are feeling. Advance Care Planning People with COVID-19 may have no symptoms, mild symptoms, such as fever, cough, and shortness of breath or they may have more severe illness, developing severe and fatal pneumonia. As a result, Advance Care Planning with attention to naming a health care decision maker (someone you trust to make healthcare decisions for you if you could not speak for yourself) and sharing other health care preferences is important BEFORE a possible health crisis. Please contact your Primary Care Provider to discuss Advance Care Planning. LEARNING ABOUT THE CORONAVIRUS (COVID-19): Coronavirus (COVID-19): Overview What is coronavirus (COVID-19)? The coronavirus disease (COVID-19) is caused by a virus. It is an illness that was first found in [facility], in August 2019. It has since spread worldwide. The virus can cause fever, cough, and trouble breathing. In severe cases, it can cause pneumonia and make it hard to breathe without help. It can cause . Coronaviruses are a large group of viruses. They cause the common cold. They also cause more serious illnesses like [place] respiratory syndrome (MERS) and severe acute respiratory syndrome (SARS). COVID-19 is caused by a novel coronavirus. That means it's a new type that has not been seen in people before. This virus spreads jcrqzi-fm-btazvr through droplets from coughing and sneezing. It can also spread when you are close to someone who is infected. And it can spread when you touch something that has the virus on it, such as a doorknob or a tabletop. What can you do to protect yourself from coronavirus (COVID-19)? The best way to protect yourself from getting sick is to: Avoid areas where there is an outbreak. Avoid contact with people who may be infected. Wash your hands often with soap or alcohol-based hand sanitizers. Avoid crowds and try to stay at least 6 feet away from other people. Wash your hands often, especially after you cough or sneeze. Use soap and water, and scrub for at least 20 seconds. If soap and water aren't available, use an alcohol-based hand multilith operator. Call 911 anytime you think you may need emergency care. For example, call if: You have severe trouble breathing. (You can't talk at all.) You have constant chest pain or pressure. You are severely dizzy or lightheaded. You are confused or can't think clearly. Your face and lips have a blue color. You pass out (lose consciousness) or are very hard to wake up. Call your doctor now if you develop symptoms such as: Shortness of breath. Fever. Cough. If you need to get care, call ahead to the doctor's office for instructions before you go. Make sure you wear a face mask, if you have one, to prevent exposing other people to the virus. Where can you get the latest information? The following health organizations are tracking and studying this virus. Their websites contain the most up-to-date information. You'll also learn what to do if you think you may have been exposed to the virus. [place]. Centers for Disease Control and Prevention (CDC): The CDC provides updated news about the disease and travel advice. The website also tells you how to prevent the spread of infection. www.cdc.gov World Health Organization (WHO): WHO offers information about the virus outbreaks. WHO also has travel advice. www.who.int Current as of: December 05, 2019 Content Version: 12.4 [employer]. Care instructions adapted under license by your healthcare professional. If you have questions about a medical condition or this instruction, always ask your healthcare professional. [employer] disclaims any warranty or liability for your use of this information. General Recommendations for Routine Cleaning and Disinfection of Households Community members can practice routine cleaning of frequently touched surfaces (for example: tables, doorknobs, light switches, handles, desks, toilets, faucets, sinks) with household specimen collector and EPA-registered disinfectants that are appropriate for the surface, following label instructions. Labels contain instructions for safe and effective use of the cleaning product including precautions you should take when applying the product, such as wearing gloves and making sure you have good ventilation during use of the product. These guidelines are focused on household settings and are meant for the general public. Cleaning refers to the removal of germs, dirt, and impurities from surfaces. Cleaning does not kill germs, but by removing them, it lowers their numbers and the risk of spreading infection. Disinfecting refers to using chemicals to kill germs on surfaces. This process does not necessarily clean dirty surfaces or remove germs, but by killing germs on a surface after cleaning, it can further lower the risk of spreading infection. General Recommendations for Cleaning and Disinfection of Households with People Isolated in Home Care - Confirmed or suspected COVID 19 Household members should educate themselves about COVID-19 symptoms and preventing the spread of COVID-19 in homes. Clean and disinfect high-touch surfaces daily in household common areas (e.g. tables, hard-backed chairs, doorknobs, light switches, remotes, handles, desks, toilets, sinks) o In the bedroom/bathroom dedicated for an ill person: consider reducing cleaning frequency to as-needed (e.g., soiled items and surfaces) to avoid unnecessary contact with the ill person. - As much as possible, an ill person should stay in a specific room and away from other people in their home. - The caregiver can provide personal cleaning supplies for an ill person's room and bathroom, unless the room is occupied by child or another person for whom such supplies would not be appropriate. These supplies include tissues, paper towels, specimen collector and EPA-registered disinfectants (see list link at [facility] website). - If a separate bathroom is not available, the bathroom should be cleaned and disinfected after each use by an ill person. If this is not possible, the caregiver should wait as long as practical after use by an ill person to clean and disinfect the high-touch surfaces. How to clean and disinfect: Hard Surfaces Wear disposable gloves when cleaning and disinfecting surfaces. Gloves should be discarded after each cleaning. If reusable gloves are used, those gloves should be dedicated for cleaning and disinfection of surfaces for COVID-19 and should not be used for other purposes. Consult the contract graphic designer's instructions for cleaning and disinfection products used. Clean hands immediately after gloves are removed. If surfaces are dirty, they should be cleaned using a detergent or soap and water prior to disinfection. For disinfection, diluted household bleach solutions, alcohol solutions with at least 70% alcohol, and most common EPA-registered household disinfectants should be effective. o Diluted household bleach solutions can be used if appropriate for the surface. Follow contract graphic designer's instructions for application and proper ventilation. Check to ensure the product is not past its expiration date. Never mix household bleach with ammonia or any other cleanser. Unexpired household bleach will be effective against coronaviruses when properly diluted. - Prepare a bleach solution by mixing: - 5 tablespoons (1/3rd cup) bleach per gallon of water or - 4 teaspoons bleach per quart of water o Products with EPA-approved emerging viral pathogens claimspdf iconexternal icon are expected to be effective against COVID-19 based on data for harder to kill viruses. Follow the contract graphic designer's instructions for all cleaning and disinfection products (e.g., concentration, application method and contact time, etc.). Soft (porous) surfaces such as carpeted floor, rugs, and drapes Remove visible contamination if present and clean with appropriate specimen collector indicated for use on these surfaces. After cleaning: Launder items as appropriate in accordance with the contract graphic designer's instructions. If possible, launder items using the warmest appropriate water setting for the items and dry items completely, or Clothing, towels, linens and other items that go in the laundry Wear disposable gloves when handling dirty laundry from an ill person and then discard after each use. If using reusable gloves, those gloves should be dedicated for cleaning and disinfection of surfaces for COVID-19 and should not be used for other household purposes. Clean hands immediately after gloves are removed. o If no gloves are used when handling dirty laundry, be sure to wash hands afterwards. o If possible, do not shake dirty laundry. This will minimize the possibility of dispersing virus through the air. o Launder items as appropriate in accordance with the contract graphic designer's instructions. If possible, launder items using the warmest appropriate water setting for the items and dry items completely. Dirty laundry from an ill person can be washed with other people's items. o Clean and disinfect clothes hampers according to guidance above for surfaces. If possible, consider placing a computer typesetter keyliner that is either disposable (can be thrown away) or can be laundered. [facility] has a list of EPA approved cleaning products on their website - https://www.cdc.gov/coronavirus/ 2019-ncov/community/home/cleanin g-disinfection.html https://www.[employer].co m/Oxsvz-Nsaskbzmwey-Tbgwtxju-Pro ducts-List.pdf [employer] with delivery and picked edge sewing machine operator services: [employer]: Free picked edge sewing machine operator at locations Delivery is $12.95 a month Website - [employer] [place]: Office Services Coordinator $2.95 (1st order is free) Delivery is $14.95 Website [employer] [place]: shift supervisor is free Delivery is $5.95 [employer]: shift supervisor is $4.95 Delivery is $9.95 [employer]: shift supervisor is $4.95 Delivery is $9.95 [employer]: Can be ordered for delivery and picked edge sewing machine operator with [employer] Website - www.[employer]: Free deliver for first 3 orders of $35 or more Website [employer] Will deliver from [employer], [employer], [employer], and [employer]. Annual membership is $99 Monthly membership is $14 documented in this encounter [facility] Work Phone: Evaluation note Note Date & Type Note Facility documented in this encounter [facility] Work Phone: Summary Purpose Family History No Family History Records FoundNo Family History Records Found Advance Directives No Advanced Directives Records FoundLatest Code Status on File Code Status Date Activated Date Inactivated Comments Full Code 12/22/2021 5:16 PM 12/23/2021 1:05 AM Additional Source Comments INFORMATION SOURCE (unrecogn ized section and content) DATE CREATED AUTHOR AUTHOR'S ORGANIZ ATION 12/25/2021 [facility] Reason for Visit (unrecogniz ed section and content) Ordered Prescriptions (unrec ognized section and content) Scheduled Active and Recently Administ ered Medications (unrecognized section and content) Continuous Medication Order 12/23/2021 12/24/2021 12/25/2021 magnesium sulfate (67037 mg/500mL infusion) () 2,000 mg/hr (50 mL/hr), IntraVENous, CONTINUOUS, Starting on Tue12/23/21 at 0245, Until Tue12/23/21 at 2115, 1000 mg = 1 gram; 2000 mg = 2 grams; 20,000 mg = 20 grams 0231 (New Bag - Provider: Migdalia Young RN)1218 (New Bag - Provider: Janell Bejarano, EBNNETT)2117 (Stopped - Provider: Cresencio Negrete RN) oxytocin (PITOCIN) 10 unit bolus from the bag 500 mL (30 Units), IntraVENous, TITRATED, Starting on Tue12/22/21 at 1845, Until Discontinued, For Immediate Post Use Only. Give after delivery of placenta. Bag 1 of 2: Bolus for bag to infuse at 999 ml/hour for 15 minutes (15 units in 250cc). After initial bolus then decrease rate to 250cc/hr for 1 hour. Then discontinue. PRN Medication Order 12/23/2021 12/24/2021 12/25/2021 0.9 % sodium chloride infusion 25 mL, IntraVENous, at 100 mL/hr, PRN, If patient receiving piggyback infusions without ordered maintenance IV fluids or with frequent/long duration piggyback infusions, Starting on Tue12/23/21 at 0105, Administer at the same rate as the piggyback being infused., acetaminophen (TYLENOL) tablet 650 mg 650 mg, Oral, EVERY 6 HOURS PRN, Starting on Tue12/23/21 at 0105, Until Discontinued, Pain Mild (1-3), Maximum dose of acetaminophen is 4000 mg from all sources in 24 hours., 0200 (Given - Provider: Migdalia Young RN)1332 (Given - Provider: Janell Bejarano, BENNETT)2210 (Given - Provider: Cresencio Negrete RN) 0427 (Given - Provider: Cresencio Negrete RN)1036 (Given - Provider: Eryn Gant, BENNETT)1723 (Given - Provider: Eryn Gant RN) 0334 (Given - Provider: Cresencio Negrete RN)0931 (Given - Provider: Sully Enciso, BENNETT) albuterol (ACCUNEB) nebulizer solution 0.63 mg 0.63 mg, Nebulization, EVERY 6 HOURS PRN, Starting on Tue12/23/21 at 0105, Until Discontinued, Wheezing, Initiate RT Bronchodilator Protocol: Yes diphenhydrAMINE (BENADRYL) injection 25 mg 25 mg, IntraVENous, EVERY 6 HOURS PRN, Starting on Tue12/23/21 at 0105, Until Discontinued, Itching, Hives, docusate sodium (COLACE) capsule 100 mg 100 mg, Oral, 2 TIMES DAILY PRN, Starting on Tue12/23/21 at 0105, Until Discontinued, Constipation, Do not crush or break., 0911 (Given - Provider: Reshma Carlton RN)2210 (Given - Provider: Cresencio Negrete RN) 0723 (Given - Provider: Cresencio Negrete RN)1709 (Given - Provider: Eryn Gant RN) 0931 (Given - Provider: Sully Enciso, BENNETT) HYDROmorphone (DILAUDID) injection 0.25 mg(Linked Group 1) HYDROmorphone (DILAUDID) 1.5mg IV is equivalent to morphine 10mg IV, 0.25 mg, IntraVENous, EVERY 3 HOURS PRN, Starting on Tue12/23/21 at 0105, Until Discontinued, Pain Moderate (4-6), If oral and IV narcotics ordered, use oral first and only use IV if oral is ineffective or cannot take oral. Do Not give oral and IV within 1 hour of each other unless specifically ordered., HYDROmorphone (DILAUDID) injection 0.5 mg(Linked Group 1) HYDROmorphone (DILAUDID) 1.5mg IV is equivalent to morphine 10mg IV, 0.5 mg, IntraVENous, EVERY 3 HOURS PRN, Starting on Tue12/23/21 at 0105, Until Discontinued, Pain Severe (7-10), If oral and IV narcotics ordered, use oral first and only use IV if oral is ineffective or cannot take oral. Do Not give oral and IV within 1 hour of each other unless specifically ordered., lansinoh lanolin ointment Topical, EVERY 1 HOUR PRN, Dry Skin, nipple discomfort, Starting on Tue12/23/21 at 0105, 0223 (Given - Provider: Gisell Ledezma, BENNETT) naloxone (NARCAN) injection 0.4 mg 0.4 mg, IntraVENous, PRN, Starting on Tue12/23/21 at 0105, Until Discontinued, Opioid Reversal, PRN if respiratory rate is < 6/min or patient is difficult to arouse. Mix 9 mL of sodium chloride 0.9% with 0.4 mg (1 mL) of naloxone (NARCAN) in 10 mL syringe. (Note: dilution is 0.04 mg/mL) Give 0.08 mg (2 mL of special dilution), slow IV push, repeat up to 0.4 mg (10 mL) or until patient is responsive to physical stimulation and is able to take deep breaths. Continue to observe, if no response within 3 minutes of administration of 0.4 mg (10 mL) total, repeat dose (0.4 mg as administered previously) and notify physician STAT., ondansetron (ZOFRAN) injection 4 mg 4 mg, IntraVENous, EVERY 6 HOURS PRN, Starting on Tue12/23/21 at 0105, Until Discontinued, Nausea, oxyCODONE (ROXICODONE) immediate release tablet 10 mg(Linked Group 2) 10 mg, Oral, EVERY 4 HOURS PRN, Starting on Tue12/23/21 at 0105, Until Discontinued, Pain Severe (7-10), 0536 (Given - Provider: Migdalia Young, BENNETT)1333 (Given - Provider: Janell Bejarano, BENNETT)2209 (See Alternative - Provider: Cresencio Negrete RN) 0223 (See Alternative - Provider: Gisell Ledezma RN)0640 (See Alternative - Provider: Cresencio Negrete RN)1035 (See Alternative - Provider: Eryn Gant, BENNETT) 0334 (Given - Provider: Cresencio Negrete RN)0932 (See Alternative - Provider: Sully Enciso RN)1431 (See Alternative - Provider: Sully Enciso, BENNETT) oxyCODONE (ROXICODONE) immediate release tablet 5 mg(Linked Group 2) 5 mg, Oral, EVERY 4 HOURS PRN, Starting on Tue12/23/21 at 0105, Until Discontinued, Pain Moderate (4-6), 0536 (See Alternative - Provider: Migdalia Young, RN)1333 (See Alternative - Provider: Janell Bejarano, RN)2209 (Given - Provider: Cresencio Negrete RN) 0223 (Given - Provider: Gisell Ledezma, RN)0640 (Given - Provider: Cresencio Negrete RN)1035 (Given - Provider: Eryn Gant, RN) 0334 (See Alternative - Provider: Cresencio Negrete RN)0932 (Given - Provider: Sully Enciso, BENNETT)1431 (Given - Provider: Sully Enciso, BENNETT) oxytocin (PITOCIN) 10 unit bolus from the bag 500 mL (30 Units), IntraVENous, PRN, 1 dose, Starting on Tue12/22/21 at 1815, Until Discontinued, Bleeding, For immediate post- use ONLY after delivery of baby/ excessive bleeding/ uterine atony. Bag 1 of 2: Bolus for bag to infuse at 999 ml/hour for 15 minutes (15 units in 250ml). After initial bolus then decrease rate to 250cc/hr (additional 15 units) for 1 hour. Then discontinue simethicone (MYLICON) chewable tablet 80 mg 80 mg, Oral, EVERY 6 HOURS PRN, Starting on Tue12/23/21 at 0105, Until Discontinued, Cramping, Flatulence, sodium chloride flush 0.9 % injection 10 mL 10 mL, IntraVENous, PRN, Starting on Tue12/23/21 at 0105, Until Discontinued, Line Care, After every IV line use, Linked Groups Order Group 1: HYDROmorphone (DILAUDID) injection 0.25 mgJump to med HYDROmorphone (DILAUDID) 1.5mg IV is equivalent to morphine 10mg IV
0.25 mg, IntraVENous, EVERY 3 HOURS PRN, Starting on Tue12/23/21 at 0105, Until Discontinued, Pain Moderate (4-6)
If oral and IV narcotics ordered, use oral first and only use IV if oral is ineffective or cannot take oral. Do Not give oral and IV within 1 hour of each other unless specifically ordered.
Or HYDROmorphone (DILAUDID) injection 0.5 mgJump to med HYDROmorphone (DILAUDID) 1.5mg IV is equivalent to morphine 10mg IV
0.5 mg, IntraVENous, EVERY 3 HOURS PRN, Starting on Tue12/23/21 at 0105, Until Discontinued, Pain Severe (7-10)
If oral and IV narcotics ordered, use oral first and only use IV if oral is ineffective or cannot take oral. Do Not give oral and IV within 1 hour of each other unless specifically ordered.
Group 2: oxyCODONE (ROXICODONE) immediate release tablet 5 mgJump to med 5 mg, Oral, EVERY 4 HOURS PRN, Starting on Tue12/23/21 at 0105, Until Discontinued, Pain Moderate (4-6), Or oxyCODONE (ROXICODONE) immediate release tablet 10 mgJump to med 10 mg, Oral, EVERY 4 HOURS PRN, Starting on Tue12/23/21 at 0105, Until Discontinued, Pain Severe (7-10), FOR RECORDS PERTAINING TO PATIENTS WHO ARE OR HAVE BEEN ENROLLED IN A CHEMICAL DEPENDENCY/SUBSTANCEABUSE PROGRAM, SOME INFORMATION MAY BE OMITTED. This clinical summary was aggregated from multiple sources. Caution should be exercised in using it in the provision of clinical care. This summary normalizes information from multiple sources, and as a consequence, information in this document may materially change the coding, format and clinical context of patient data. In addition, data may be omitted in some cases. CLINICAL DECISIONS SHOULD BE BASED ON THE PRIMARY CLINICAL RECORDS. [employer] [facility]. provides no warranty or guarantee of the accuracy or completeness of information in this document.
[2023-09-21 10:08] LABS: HPV APTIMA, High Risk Negative (Negative)
== END | disposition home or self-care (01) ==
PROVIDERS: PCP Family Medicine; Visit Provider Nurse Practitioner Women's Health
DX: Z12.4 Encounter for screening for malignant neoplasm of cervix (principal)
CPT/HCPCS: 87624; 88175; G0145

== ENCOUNTER → 2024-02-23 | Outpatient (CLI) | payer OTHER, SELFPAY ==
[2024-02-23 14:53] LABS: Hemoglobin A1c 7.2 % (3.8-5.6)
[2024-02-23 14:59] LABS: Free T4 1.12 ng/dL (0.76-1.46)
[2024-02-27 16:09] LABS: Endomysial Antibody IgA Negative (Negative); Immunoglobulin A 202 mg/dL (87-352); t-Transglutaminase IgA <2 U/mL (0-3)
== END | disposition home or self-care (01) ==
LOC: PAVLAB 13:52
PROVIDERS: PCP Family Medicine; Visit Provider Internal Medicine Endocrinology, Diabetes & Metabolism
DX: E03.9 Hypothyroidism, unspecified (principal); E66.01 Morbid (severe) obesity due to excess calories; Z68.43 Body mass index [BMI] 50.0-59.9, adult; R73.03 Prediabetes; R19.7 Diarrhea, unspecified
CPT/HCPCS: 36415; 82784; 83036; 83516; 84439; 84443; 86255

== ENCOUNTER 2024-08-09 00:32 | Emergency (ER) | payer OTHER, SELFPAY ==
[2024-08-09 00:37] VITALS: BP 149/85; PULSE 100; RESP 18; TEMP 37; O2SAT 97; BMI 51.0
--- NOTE | 2024-08-09 01:14 | EDS_ITS ---
HPI HPI - Fall History of Present Illness Chief Complaint: Fall Informant: patient Occured/Mechanism Occurred: Today Mechanism/Context: Yes same level fall and Yes slip Pain/Injury Location: Head, neck, back Pain Location: head, neck and back Quality of Pain: Burning Worsened by: Movement Relieved by: Rest Associated Symptoms Associated Symptoms: Positive for Parasthesias; Negative for Weakness, Loss of function, Inability to ambulate, Loss of consciousness or Amnesia Narrative Narrative: Patient presents after a fall that occurred tonight. Patient states she slipped on the ice while she was walking into work. Patient states she fell backwards onto her tailbone and back. Patient states she also hit the back of her head. Patient denies any loss of consciousness. Patient states she was able to ambulate after the fall. Patient describes her pain as burning. Patient states it is worse with movement. Patient states it is better with rest. Patient admits to some mild photophobia. Patient denies any nausea or vomiting. Patient denies any visual changes. Patient admits to some tingling over the lateral aspect of her left foot. Patient denies any weakness. Patient denies any bowel or bladder changes. Patient denies any saddle anesthesia. [facility] Medical History Diarrhea Wears glasses Depression Anxiety Thyroid disease Anemia Non-smoker CPAP (continuous positive airway pressure) dependence Asthma Prediabetes Hypothyroidism (acquired) HELLP syndrome (HELLP), third trimester Macrosomia of fetus affecting management of mother Thrombocytopenia affecting Anemia affecting Gestational diabetes COVID-19 vaccine administered Rh negative status during Sleep apnea Eczema Mood swings Depression with anxiety Seasonal allergies URI, acute Home Medications ?Medication ?Instructions ?Recorded ?Last Taken ?Type albuterol sulfate 90 mcg/actuation 1 - 2 inh inhalation Q6H PRN 04/29/23 Unknown History aerosol inhaler shortness of breath or wheezing cetirizine 10 mg tablet (Allergy 10 mg PO DAILY PRN allergy symptoms 04/29/23 Unknown History Relief (cetirizine)) citalopram 40 mg tablet 40 mg PO DAILY #90 tabs 11/11/23 Unknown Rx levothyroxine 125 mcg tablet 125 mcg PO DAILY #90 tabs 02/23/24 Unknown Rx liraglutide 0.6 mg/0.1 mL (18 mg/3 1.8 mg (0.3 mL) subcut .COMPLEX #9 06/28/24 Unknown Rx mL) subcutaneous pen injector mL metformin 500 mg tablet 500 mg PO BID #180 tabs 06/28/24 Unknown Rx Allergy/AdvReac Type Severity Reaction Status Date / Time Environmental Allergies: Allergy Mild SNEEZING, Verified 08/09/24 00:34 Uncoded RUNNY NOSE Family History Father Diabetes Grandmother Diabetes Surgical History H/O bilateral salpingectomy History of dental surgery S/P [place] teeth removed S/P wisdom tooth extraction S/P tonsillectomy Social History household members: family current occupation: [employer] Smoking Status: Never smoker alcohol intake: never substance use type: does not use caffeine: Yes what type of physical activity do you participate in: aerobics and weight training frequency: 3-4 times per week seatbelt use: always do you feel safe at home: Yes ROS ROS ED Constitutional Constitutional ED: Denies chills or fever(s) Eyes Eyes: Denies blurry vision or change in vision ENT ENT ED: Denies rhinorrhea or sore throat Cardiovascular Cardiovascular: Denies chest pain or palpitations Respiratory/Chest Respiratory/Chest: Denies cough or dyspnea Gastrointestinal Gastrointestinal: Denies nausea or vomiting Genitourinary Genitourinary ED: Denies dysuria or hematuria Musculoskeletal Musculoskeletal: Reports back pain and neck pain Integumentary Denies abscess or rash Neurologic Neurologic: Reports headache(s); Denies weakness Allergic/Immunologic Allergic/Immunologic ED: Denies mouth swelling or urticaria EXAM Physical Exam Const Vital Signs: 08/09/24 00:37 08/09/24 00:46 Temperature 98.6 F Temperature Source Oral Pulse Rate 100 Respiratory Rate 18 Blood Pressure 149/85 H Blood Pressure Mean 106 Pulse Ox 97 Oxygen Delivery Method Room Air Room Air Positive well nourished and well developed General Appearance ED: well developed and NAD HEENT Reports normocephalic HEENT Narrative: There is tenderness over the occipital scalp. There is no laceration noted. There is no hematoma. There is no bony crepitance or step-off. tenderness Neck supple Neck Narrative: There is diffuse tenderness over the cervical spine and bilateral paraspinal muscles. Range of motion was slightly limited in all motions of the cervical spine secondary to pain. There is no bony crepitance or step-off noted. There is no edema or ecchymosis. General: tenderness Resp normal respiratory effort and clear to auscultation bilaterally Cardio regular rate and regular rhythm GI non-tender and non-distended Palpation: soft Back/Spine Back/Spine Narrative: There is diffuse tenderness over the thoracic, lumbar, and sacral spine. There is no bony crepitance or step-off. Range of motion was limited in all motions of the thoracic and lumbar spine secondary to pain. Strength is 5/5 bilaterally in the upper and lower extremities. There are no sensory deficits noted. Patient was able to ambulate without difficulty. Thoracic Spine / Upper Back: ROM limited and pain with ROM Lumbar Spine / Lower Back: lumbar spinal tenderness Neuro oriented x3, CN's II-XII intact bilaterally, moves all extremities, no focal motor deficits and no sensory deficits noted [place] Coma Scale: document GCS findings Spontaneous Obeys Commands Oriented 15 Sensorium / Orientation: alert Motor Exam: strength 5/5 throughout Psych mental status grossly normal MDM MDM MDM Narrative Medical decision making narrative: Differential diagnosis includes closed head injury, concussion, cervical spine fracture, thoracic fracture, lumbar fracture, sacral fracture, contusion, and muscle strain. CT scan of the brain will be obtained to assess for intracranial bleeding. CT scan of the cervical spine will be obtained to assess for cervical spine fracture and spondylolisthesis. X-rays of the thoracic and lumbar spine will be obtained to assess for fracture and spondylolisthesis. Radiography X-Ray: LS SPine, T-Spine, No Fracture and Normal Bony Alignment Diagnostic Testing: Clinical Impression(s) from Imaging Studies Brain CT 08/09/24 01:20 IMPRESSION: No acute abnormality. Electronically Signed: Jailyn Fulton MD at 2:16 EST , Cervical Spine CT 08/09/24 01:20 IMPRESSION: No evidence of fracture or subluxation. Straightening of the normal curve may be due to positioning or muscle spasm. Electronically Signed: Jaliyn Fulton MD at 2:18 EST Reading Location ID and State: [id number] / [employer] , Service support , Lumbar Spine X-Ray 08/09/24 01:20 IMPRESSION: No evidence of fracture or subluxation. Electronically Signed: Jailyn Fulton MD at 2:24 EST , Thoracic Spine X-Ray 08/09/24 01:20 IMPRESSION: No evidence of fracture or subluxation. Electronically Signed: Jailyn Fulton MD at 2:25 EST , X-rays of the lumbar spine were obtained. There are 3 views. On my independent interpretation, there is no acute fracture or spondylolisthesis noted. Radiologist also interpreted the x-rays and agrees. X-rays of the thoracic spine were obtained. There are 4 views. On my independent interpretation, there is no acute fracture or spondylolisthesis noted. Radiologist also interpreted the x-rays and agrees. CT scan of the cervical spine was obtained. There is no acute fracture or spondylolisthesis. There is no soft tissue swelling noted. There are mild degenerative changes noted. This was interpreted by the radiologist and was also independently reviewed by myself. CT scan of the brain was obtained. There is no acute intracranial abnormality. This was interpreted by the radiologist and was also independently reviewed by myself. Treatment and Re-Evaluation Narrative: Patient was advised of her findings. Patient is feeling better on reevaluation. Patient was instructed to use ice to the area. Patient was instructed to follow-up with her primary care physician in 5 to 7 days. Patient was instructed return if worse in any way. Patient understood and was agreeable with the plan. All questions were answered. Discharge Plan Triage Chief Complaint: Fall ED Provider: Seth Dupont Dx/Rx/DC Orders Clinical Impression: Closed head injury without loss of consciousness, Acute cervical myofascial strain, Acute thoracic myofascial strain, Acute lumbosacral myofascial strain, Fall Instructions: ED Back Sprain/Strain, ED Head Injury (Adult), ED Neck Sprain or Strain Prescriptions: No Action liraglutide 0.6 mg/0.1 mL (18 mg/3 mL) pen injector 1.8 mg subcut .COMPLEX Qty: 9 1RF Rx Instructions: 1.8 mg subcutaneously once daily x 7 days; then 1.2mg daily, not to exceed 1.8mg/day subcut; metformin 500 mg tablet 500 mg PO BID Qty: 180 1RF cetirizine [Allergy Relief (cetirizine)] 10 mg tablet 10 mg PO DAILY PRN (Reason: allergy symptoms) albuterol sulfate 90 mcg/actuation HFA aerosol inhaler 1 - 2 inh inhalation Q6H PRN (Reason: shortness of breath or wheezing) citalopram 40 mg tablet 40 mg PO DAILY Qty: 90 3RF levothyroxine 125 mcg tablet 125 mcg PO DAILY Qty: 90 3RF Primary Care Provider: Александр Coleman Referrals: Александр Coleman MD [Primary Care Provider] - 5-7 Days Print Language: Filipino Disposition Disposition: Home, Self Care
--- NOTE | 2024-08-09 01:20 | CT_ITS ---
INDICATION: Injury/Pain EXAMINATION: CT BRAIN - CT Head or Brain W/O Contrast Injection TECHNIQUE: Multiple axial images were obtained of the head without intravenous contrast. The protocol utilizes one or more of the following dose reduction techniques: automated exposure control, adjustment of mA and/or kV according to patient size,and/or use of iterative reconstruction technique. IV Contrast dosage and agent: None. RADIATION DOSAGE (If Supplied By Facility): CTDIvol = ( 44.99 ) mGy, DLP = ( 846.73 ) mGycm COMPARISON: Prior study dated: 09/04/2020 FINDINGS: BRAIN: No acute bleed. No edema. Espino-white matter differentiation is maintained. VENTRICLES AND SULCI: Not dilated. EXTRA-AXIAL: No hemorrhage, fluid collection, or mass. CALVARIUM / SKULL BASE: Unremarkable. FACE/SINUSES: Unremarkable. SOFT TISSUES: Unremarkable. CT/Brain/Head without Contrast IMPRESSION: No acute abnormality. Electronically Signed: Jailyn Fulton MD at 2:16 EST ,
--- NOTE | 2024-08-09 01:20 | RAD_ITS ---
INDICATION: Injury/Pain EXAMINATION/TECHNIQUE: X-RAY - XR Spine Thoracic 3 Views COMPARISON: No relevant prior comparison study available FINDINGS: The vertebral bodies are normal in height. No definite fracture demonstrated. No subluxation. No paravertebral soft tissue mass identified. RAD/Thoracic Spine 3 Views IMPRESSION: No evidence of fracture or subluxation. Electronically Signed: Jailyn Fulton MD at 2:25 EST ,
--- NOTE | 2024-08-09 01:20 | CT_ITS ---
INDICATION: Injury/Pain EXAMINATION: CT CERVICAL SPINE - CT Spine Cervical W/O Contrast Injection TECHNIQUE: Helically acquired images were obtained of the cervical spine. 2D reformatted images were reviewed. The protocol utilizes one or more of the following dose reduction techniques: automated exposure control, adjustment of mA and/or kV according to patient size,and/or use of iterative reconstruction technique. IV Contrast dosage and agent: None. RADIATION DOSAGE (If Supplied By Facility): CTDIvol = ( 28.66 ) mGy, DLP = ( 624.41 ) mGycm COMPARISON: Prior study dated: 09/04/2020 FINDINGS: ALIGNMENT: No subluxation. Straightening of the normal curvature. MINERALIZATION: Normal. VERTEBRAL BODIES: No fracture or acute abnormality. DISC SPACES: Unremarkable. POSTERIOR ELEMENTS: Unremarkable. SPINAL CANAL: Maintained. PARASPINAL SOFT TISSUES: Unremarkable. OTHER: None. CT/Spine Cervical without Contras IMPRESSION: No evidence of fracture or subluxation. Straightening of the normal curve may be due to positioning or muscle spasm. Electronically Signed: Jailyn Fultno MD at 2:18 EST ,
--- NOTE | 2024-08-09 01:20 | RAD_ITS ---
INDICATION: Injury/Pain EXAMINATION/TECHNIQUE: X-RAY - XR Spine Lumbar 2 or 3 Views COMPARISON: No relevant prior comparison study available FINDINGS: The vertebral bodies are normal in height. No definite fracture demonstrated. No subluxation. No paravertebral soft tissue mass identified. RAD/Lumbar Spine 2 or 3 Views IMPRESSION: No evidence of fracture or subluxation. Electronically Signed: Jailyn Fulton MD at 2:24 EST ,
[2024-08-09 03:03] VITALS: BP 149/85; PULSE 100; RESP 18; TEMP 37; O2SAT 97
== END 2024-08-09 03:04 | disposition home or self-care (01) ==
PROVIDERS: Emergency Provider Emergency Medicine; PCP Family Medicine; Visit Provider Emergency Medicine
DX: S09.90XA Unspecified injury of head, initial encounter (principal); S16.1XXA Strain of muscle, fascia and tendon at neck level, initial encounter; W00.0XXA Fall on same level due to ice and snow, initial encounter; S39.012A Strain of muscle, fascia and tendon of lower back, initial encounter; S29.019A Strain of muscle and tendon of unspecified wall of thorax, initial encounter; Y93.01 Activity, walking, marching and hiking; Y92.89 Other specified places as the place of occurrence of the external cause; G47.30 Sleep apnea, unspecified; Z99.89 Dependence on other enabling machines and devices; F41.8 Other specified anxiety disorders; Z79.899 Other long term (current) drug therapy; E03.9 Hypothyroidism, unspecified
CPT/HCPCS: 70450; 72072; 72100; 72125; 99282

== ENCOUNTER → 2025-04-25 | Outpatient (CLI) | payer OTHER, SELFPAY ==
[2025-04-25 15:35] LABS: AST(SGOT) 45 U/L (<=31); Alanine Aminotransfer ALT/SGPT 68 U/L (<=34); Albumin, Serum 4.1 g/dL (3.5-5.0); Alkaline Phosphatase 60 U/L (35-104); Anion Gap 12 (5-15); BUN 11 mg/dL (4-19); BUN/Creat Ratio 16.1 RATIO (10-20); Calcium,Total 9.0 mg/dL (7.6-11.0); Carbon Dioxide 22.8 mmol/L (21.0-32.0); Chloride 106 mmol/L (98-108); Cholesterol 198 mg/dL (<=200); Globulin 2.6 g/dL (2.2-4.2); Glucose 142 mg/dL (70-99); Low Density Lipoprotein Calc. 119 mg/dL; Potassium 4.1 mmol/L (3.3-5.1); Triglycerides 164 mg/dL; Very Low Density Lipoprotein 33 mg/dL (5-40); cholesterol:hdl ratio screen 4.32
[2025-04-25 18:41] LABS: Creatinine, Urine (random) 307.00 mg/dL (28.00-217.00); Microalbumin,Random Urine 22.1 mg/L (<20 mg/L)
== END | disposition home or self-care (01) ==
PROVIDERS: PCP Family Medicine; Referring Provider Internal Medicine Endocrinology, Diabetes & Metabolism; Visit Provider Internal Medicine Endocrinology, Diabetes & Metabolism
DX: E11.9 Type 2 diabetes mellitus without complications (principal); E66.01 Morbid (severe) obesity due to excess calories; Z68.43 Body mass index [BMI] 50.0-59.9, adult; E03.9 Hypothyroidism, unspecified
CPT/HCPCS: 36415; 80053; 80061; 82043; 82570; 84439; 84443